=== PATIENT | male | born 1960 | race Caucasian/White ===

== ENCOUNTER → 2020-11-01 08:35 | Outpatient (BNVA) | payer SELFPAY | PROVIDERS: PCP Internal Medicine; Visit Provider Physician Assistant | DX: Z02.79 Encounter for issue of other medical certificate (principal) ==

== ENCOUNTER 2021-12-27 07:53 | Outpatient (REF) | payer BC, SELFPAY ==
[2021-12-27 08:14] LABS: MANUAL DIFF FLAG NO
[2021-12-27 08:34] LABS: Basophils Percent Auto 0.2 % (0-2); Eosinophils Absolute Auto 0.1 X10*3/uL (0.0-0.4); Eosinophils Percent Auto 1.7 % (0-4); Hematocrit 44.8 % (42.0-52.0); Hemoglobin 14.9 g/dl (14.0-18.0); Imm Gran Abs Auto 0.02 X10*3/uL (0.00-0.03); Imm Gran Pct Auto 0.4 % (0.0-0.4); Lymphocytes Absolute Auto 1.2 X10*3/uL (1.2-4.9); Lymphocytes Percent Auto 22.3 % (20-40); Mean Corpuscular HGB Conc 33.3 g/dl (31.0-36.0); Mean Corpuscular Hemoglobin 29.2 pg (27.0-33.0); Mean Corpuscular Volume 87.7 fL (80.0-98.0); Mean Platelet Volume 9.8 fL (9.4-12.4); Monocytes Absolute Auto 0.5 X10*3/uL (0.1-1.2); Monocytes Percent Auto 9.3 % (2-11); Neutrophils Absolute Auto 3.6 x10*3/uL (2.0-8.3); Neutrophils Percent Auto 66.1 % (45-73); Platelet Count 200 X10*3/uL (160-400); Red Blood Count 5.11 X10*6/uL (4.60-5.80); Red Cell Distribution Width 13.1 % (11.0-16.0); White Blood Count 5.4 X10*3/uL (4.8-10.8)
[2021-12-27 08:41] LABS: Estimated Average Glucose 123 mg/dL; Hemoglobin A1c % 5.9 %
[2021-12-27 09:06] LABS: Alanine Aminotransferase 23 U/L (0-40); Albumin Level 4.3 g/dL (3.5-5.0); Alkaline Phosphatase 74 U/L (39-117); Anion Gap 12 (12-20); Aspartate Amino Transferase 21 U/L (5-37); Bilirubin Total 0.9 mg/dL (0.0-1.0); Blood Urea Nitrogen 13 mg/dL (9-16); Calcium 9.5 mg/dL (8.4-10.2); Carbon Dioxide 25 mmol/L (22-29); Chloride 105 mmol/L (96-108); Cholesterol 190 mg/dL; Estimated Glomerular Filt Rate > 60; Glucose Random 102 mg/dL (60-115); HDL Cholesterol 39 mg/dL; LDL Cholesterol Calculated 138 mg/dl; Potassium 4.9 mmol/L (3.3-5.1); Sodium 137 mmol/L (135-145); Total Protein 7.3 g/dL (6.5-8.0); Triglycerides 67 mg/dL
[2021-12-27 09:19] LABS: Thyroid Stimulating Hormone 1.32 uIU/mL (0.32-4.0)
== END 2021-12-27 07:54 | disposition home or self-care (01) ==
LOC: HO.LAB 07:53
PROVIDERS: PCP Internal Medicine; Visit Provider Internal Medicine
DX: Z00.01 Encounter for general adult medical examination with abnormal findings (principal); Z13.31 Encounter for screening for depression; I10 Essential (primary) hypertension
CPT/HCPCS: 36415; 80053; 80061; 83036; 84443; 85025

== ENCOUNTER 2022-07-22 15:11 | Outpatient (REF) | payer BC, SELFPAY | END 2022-07-22 15:12 | disposition home or self-care (01) | LOC: HO.LAB 15:11 | PROVIDERS: Visit Provider Internal Medicine | DX: Z13.89 Encounter for screening for other disorder (principal) ==

== ENCOUNTER 2023-01-25 08:04 | Outpatient (REF) | payer BC, SELFPAY ==
[2023-01-25 08:33] LABS: MANUAL DIFF FLAG NO
[2023-01-25 09:14] LABS: Basophils Percent Auto 0.2 % (0-2); Eosinophils Absolute Auto 0.1 X10*3/uL (0.0-0.4); Eosinophils Percent Auto 1.9 % (0-4); Hematocrit 44.5 % (42.0-52.0); Hemoglobin 14.7 g/dl (14.0-18.0); Imm Gran Abs Auto 0.01 X10*3/uL (0.00-0.03); Imm Gran Pct Auto 0.2 % (0.0-0.4); Lymphocytes Absolute Auto 1.2 X10*3/uL (1.2-4.9); Lymphocytes Percent Auto 21.2 % (20-40); Mean Corpuscular Hemoglobin 29.1 pg (27.0-33.0); Mean Corpuscular Volume 88.1 fL (80.0-98.0); Mean Platelet Volume 10.4 fL (9.4-12.4); Monocytes Absolute Auto 0.4 X10*3/uL (0.1-1.2); Monocytes Percent Auto 7.8 % (2-11); Neutrophils Absolute Auto 3.9 x10*3/uL (2.0-8.3); Neutrophils Percent Auto 68.7 % (45-73); Platelet Count 204 X10*3/uL (160-400); Red Blood Count 5.05 X10*6/uL (4.60-5.80); Red Cell Distribution Width 13.2 % (11.0-16.0); White Blood Count 5.7 X10*3/uL (4.8-10.8)
[2023-01-25 09:46] LABS: Alanine Aminotransferase 29 U/L (0-40); Albumin Level 4.2 g/dL (3.5-5.0); Alkaline Phosphatase 83 U/L (39-117); Anion Gap 12 (12-20); Aspartate Amino Transferase 19 U/L (5-37); Bilirubin Total 0.7 mg/dL (0.0-1.0); Blood Urea Nitrogen 11 mg/dL (9-16); Calcium 9.2 mg/dL (8.4-10.2); Carbon Dioxide 25 mmol/L (22-29); Chloride 111 mmol/L (96-108); Cholesterol 172 mg/dL; Estimated Glomerular Filt Rate > 60; Glucose Random 112 mg/dL (60-115); HDL Cholesterol 33 mg/dL; LDL Cholesterol Calculated 119 mg/dl; Potassium 4.5 mmol/L (3.3-5.1); Sodium 143 mmol/L (135-145); Total Protein 6.8 g/dL (6.5-8.0); Triglycerides 102 mg/dL
== END 2023-01-25 08:05 | disposition home or self-care (01) ==
LOC: HO.LAB 08:04
PROVIDERS: PCP Internal Medicine; Visit Provider Internal Medicine
DX: Z00.01 Encounter for general adult medical examination with abnormal findings (principal); Z12.5 Encounter for screening for malignant neoplasm of prostate; I10 Essential (primary) hypertension; R10.9 Unspecified abdominal pain; Z91.148 Patient's other noncompliance with medication regimen for other reason
CPT/HCPCS: 36415; 80053; 80061; 84153; 85025

== ENCOUNTER 2023-08-29 16:10 | Inpatient (IN) | payer BC, SELFPAY ==
[2023-08-29 16:53] VITALS: BP 182/112; PULSE 87; RESP 18; TEMP 36.1; O2SAT 96; BMI 39.9
--- NOTE | 2023-08-29 18:32 | ED_ITS ---
HPI - Male Genitourinary General Chief complaint: Urogenital-Male Stated complaint: Flank pain Time Seen by Provider: 08/29/23 19:29 History of Present Illness HPI Narrative: 62 y/o M patient; PMH HTN, nephrolithiasis; presents from home reporting left- sided flank pain for the last 3 days. Associated with painful urination and decrease in urination today. Also associated with nausea without vomiting. Otherwise denies: fever or chills, SOB, cough/congestion, chest pain, vomiting, diarrhea, hematuria. He has previously been followed by Urology with history of stent and lithotripsy. He has required admission previously for kidney stones. Related Data Allergies Allergy/AdvReac Type Severity Reaction Status Date / Time No Known Allergies Allergy Verified 08/29/23 16:53 [No Known Allergies*] Review of Systems 2 Review of Systems: Yes all other systems are reviewed and are negative [facility] Past Medical History Attestation statement: The following information was validated with the patient. Source: old records reviewed Onset Date is defined in the Problem List Problems that require an onset date and time if occurred within 24 hrs of arrival to the ED Aortic Dissection and Rupture; Neurologic impairment; Cardiopulmonary Arrest; Endotracheal Intubation; Insertion or Replacement of Mechanical Circulatory Assist Device Social History Social History Smoked in Last 30 Days: No Use of substances other than those prescribed or required for medical reasons: No Advance Directives: No Advance Directives Information Provided: No Physical Exam 2 Vital Signs: Vital Signs: Last Vital Signs Temp 98.4 F 08/29/23 19:56 Pulse 79 08/29/23 19:56 Resp 18 08/29/23 19:56 BP 186/115 H 08/29/23 19:56 Pulse Ox 96 08/29/23 19:56 O2 Del Method Room Air 08/29/23 19:56 BMI result Body Mass Index 39.9 Patient is afebrile, mildly hypertensive. Const: General: cooperative HEENT: Head: Yes atraumatic Eyes: General: appearance normal, both eyes and all related structures P upils: Equal, round and reactive pupils present EOM: EOMs intact bilaterally Neck: Neck: Yes normal visual inspection, Yes full ROM and Yes supple Chest: Chest palpation & inspection: normal inspection of the chest and normal palpation of entire chest wall Resp: Effort & Inspection: normal respiratory effort and no respiratory distress Auscultation: clear to auscultation bilaterally Cardio: Rate: regular rate Rhythm: regular rhythm Peripheral pulses: P eripheral pulses 2+ throughout GI: Other: Suprapubic abdominal tenderness Inspection: No Abdominal wall edema and No distended Palpation (GI): S oft to palpation, not firm, no guarding and not rigid Back/Spine/Pelvis: Other: No CVA tenderness Mild lower left-sided paralumbar discomfort to palpation, no central bony tenderness or step off Neuro: Cranial nerves: Yes Equal, round and reactive pupils present Course Course Course Narrative: This is an RME: Additional HPI, ROS, PE not included below will be deferred to primary provider. 62-year-old male presents with left-sided kidney pain, nausea X 3 days. Passed out from pain this am. hx of stones. very uncomfortable. Plan- labs, ua, ekg, ct 0735- I reviewed the images and patient has a large stone in the bladder, as well as hydronephrosis. Still pending results by Radiology. Asked charge to bring patient back. Reevaluation(s) Reevaluation #1: Patient is afebrile and hemodynamically stable. Reviewed triage work up. Leukocytosis noted. UA with evidence of possible mild infection with 1+ bacteria, 11-20 WBC, and trace leukocyte esterase. Provided total 2L IVF. Ordered for blood cultures and Ceftriaxone 2g IV due to extensive stranding noted on CT and evidence of infection in urine. Plan: Admit to hospitalist Condition: Stable Medications Administered Generic Name Dose Route Start Last Admin Trade Name Freq PRN Reason Stop Dose Admin Sodium Chloride 1,000 mls @ 999 mls/hr 08/29/23 20:00 08/29/23 20:31 Ns IV 08/29/23 21:00 999 mls/hr .Q1H1M JAZZMINE Administration Discontinued Medications Generic Name Dose Route Start Last Admin Trade Name Freq PRN Reason Stop Dose Admin Hydromorphone HCl 0.5 mg 08/29/23 20:00 08/29/23 20:21 Hydromorphone Hcl 0.5 Mg/0.5 Ml Syringe IVPUSH 08/29/23 20:01 0.5 mg ONCE ONE Administration Protocol Sodium Chloride 1,000 mls @ 999 mls/hr 08/29/23 18:45 08/29/23 20:09 Ns IV 08/29/23 19:45 999 mls/hr .Q1H1M JAZZMINE Administration Ceftriaxone Sodium 2 gm/ 50 mls @ 100 mls/hr 08/29/23 20:01 08/29/23 20:27 Sodium Chloride IV 08/29/23 20:30 100 mls/hr ONCE ONE Administration Ketorolac Tromethamine 30 mg 08/29/23 18:32 08/29/23 20:17 Ketorolac Tromethamine 15 Mg/Ml Vial IVPUSH 08/29/23 18:33 Not Given ONCE ONE Medical Decision Making Lab Data 08/29/23 17:12 08/29/23 17:12 Labs: Lab Results 08/29/23 08/29/23 Range/Units 17:12 18:34 WBC 13.0 H (4.8-10.8) X10*3/uL RBC 5.56 (4.60-5.80) X10*6/uL Hgb 16.4 (14.0-18.0) g/dl Hct 47.4 (42.0-52.0) % MCV 85.3 (80.0-98.0) fL MCH 29.5 (27.0-33.0) pg MCHC 34.6 (31.0-36.0) g/dl RDW 13.2 (11.0-16.0) % Plt Count 219 (160-400) X10*3/uL MPV 9.7 (9.4-12.4) fL Immature Gran % (Auto) 0.5 H (0.0-0.4) % Neut % (Auto) 84.4 H (45-73) % Lymph % (Auto) 7.2 L (20-40) % [place] % (Auto) 7.4 (2-11) % Eos % (Auto) 0.3 (0-4) % Baso % (Auto) 0.2 (0-2) % Lymph # (Auto) 0.9 L (1.2-4.9) X10*3/uL [place] # (Auto) 1.0 (0.1-1.2) X10*3/uL Eos # (Auto) 0.0 (0.0-0.4) X10*3/uL Baso # (Auto) 0.0 (0.0-0.2) X10*3/uL Abs Immat Gran (auto) 0.06 H (0.00-0.03) X10*3/uL Absolute Neuts (auto) 11.0 H (2.0-8.3) x10*3/uL Absolute Nucleated RBC 0.000 (0.0-0.012) X10*3/uL Nucleated RBC % (auto) 0.0 (0.0-0.2) /100WBC Sodium 139 (135-145) mmol/L Potassium 4.2 (3.3-5.1) mmol/L Chloride 105 (96-108) mmol/L Carbon Dioxide 23 (22-29) mmol/L Anion Gap 15 (12-20) BUN 15 (9-16) mg/dL Creatinine 1.37 (0.5-1.4) mg/dL Estim Creat Clear Calc 68.8 Estimated GFR 53 Random Glucose 108 (60-115) mg/dL Calcium 9.7 (8.4-10.2) mg/dL Total Bilirubin 0.5 (0.0-1.0) mg/dL AST 24 (5-37) U/L ALT 29 (0-40) U/L Alkaline Phosphatase 70 (39-117) U/L Total Protein 8.0 (6.5-8.0) g/dL Albumin 4.5 (3.5-5.0) g/dL Urine Color Yellow Urine Appearance Turbid Urine pH 8.0 (5.0-9.0) Ur Specific [place] 1.020 (1.005-1.025) Urine Protein Trace (Neg-Trace) mg/dL Urine Glucose (UA) Negative (Negative) mg/dL Urine Ketones Negative (Negative) mg/dL Urine Blood Negative (Negative) Urine Nitrite Negative (Negative) Ur Leukocyte Esterase Trace H (Negative) Urine RBC 0-2 (0-2) /HPF Urine WBC 11-20 H (0-5) /HPF Ur Squamous Epith Cells 0-2 (0-2) /HPF Urine Bacteria 1+ (None Seen) Hyaline Casts 0-2 (0-2) /LPF Radiology Impression Discussion of test interpretation with radiology: I have reviewed the radiologist's reading. Radiologist Impression: EXAMINATION: CT ABDOMEN AND PELVIS WITHOUT CONTRAST CLINICAL INFORMATION: Left flank pain. COMPARISON: CT abdomen pelvis dated 01/21/2019. TECHNIQUE: Multidetector volumetric imaging was performed from the superior aspect of the liver through the pubic symphysis. Sagittal and coronal reformatted images were obtained on the technologist's workstation. This CT examination was performed using dose optimization techniques as appropriate, variously including the following: *Automated exposure control *Adjustment of mA and/or kV according to patient size (this includes techniques or standardized protocols for targeted exams where dose is matched to indication/reason for exam; i.e. extremities or head) *Use of iterative reconstruction technique DLP: 1043 mGy-cm FINDINGS: LUNG BASES: There is a partially visualized 4.8 mm left lower lobe pulmonary nodule. The lung bases are otherwise clear. LIVER, GALLBLADDER, AND BILIARY TREE: The liver is steatotic. No focal hepatic lesion is seen. The gallbladder is unremarkable with no evidence of radiopaque gallstones, gallbladder wall thickening, or obvious pericholecystic inflammatory changes. PANCREAS: Unremarkable. SPLEEN: Unremarkable. ADRENAL GLANDS: Unremarkable. KIDNEYS AND URETERS: Right: The right kidney is normal in size and attenuation. There is a punctate calculus within the interpolar region. There is no right hydronephrosis. There is no right perinephric stranding. There is a peripherally calcified cyst within the upper pole measuring 4.7 x 4.2 cm, unchanged from prior study. There is a 2.9 x 2.6 cm cyst within the lower pole which previously measured 1.9 x 1.5 cm. The right ureter is normal in caliber. No right ureteric stone. Left: The left kidney is mildly enlarged and demonstrates overall decreased attenuation compared with the right side. There is hydronephrosis. There is significant perinephric stranding. The left ureter is markedly dilated throughout its course particularly immediately before it enters the bladder. There is significant periureteric stranding. There is a 1.3 x 0.9 cm calculus at the left ureterovesicular junction. BLADDER: There is a left-sided 1.3 x 0.9 cm calculus at the left ureterovesicular junction as stated above. The anterior wall of the bladder remains trabeculated. GASTROINTESTINAL TRACT: The small bowel and colon are normal in caliber. There is colonic diverticulosis without evidence of acute diverticulitis. The appendix is normal in appearance. ABDOMINAL WALL: No significant hernia is appreciated. LYMPH NODES: No abdominal or pelvic lymphadenopathy. VASCULAR: No abdominal aortic aneurysm. PELVIC VISCERA: Unremarkable. 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 There are pars defects at L5 bilaterally. CT/CT abdomen pelvis wo IV con IMPRESSION: - The left kidney is mildly enlarged and demonstrates overall decreased attenuation compared with the right side. There is hydronephrosis. There is significant perinephric stranding. The left ureter is markedly dilated throughout its course particularly immediately before it enters the bladder. There is significant periureteric stranding. There is a 1.3 x 0.9 cm calculus at the left ureterovesicular junction. Findings were discussed with SIMEON Dunham at 7:30 PM on 08/29/2023. Fleischner guidelines were followed. Discharge Plan Discharge Clinical Impression: Urinary tract infection, Kidney stone Patient Disposition: Admitted As Inpatient
[2023-08-29 19:56] VITALS: BP 186/115; PULSE 79; RESP 18; TEMP 36.9; O2SAT 96
--- NOTE | 2023-08-29 20:50 | PHA.MEDREC ---
Pharmacy Consult ? Medication Reconciliation Pharmacy has completed the medication reconciliation. Patient reported no medications at home. Cindy Hardy, CherylD
--- NOTE | 2023-08-29 21:02 | PC.NURSE ---
pt requesting a work note if he receives any narcotics during admission d/t drug testing at work
--- NOTE | 2023-08-29 21:07 | PM.IMHP ---
History of Present Illness Date of Service: 08/29/23 Chief Complaint: Left flank pain This is a 62-year-old male with pertinent history of diet-controlled hypertension, history of recurrent kidney stones who presents to the emergency department for evaluation of left flank pain. Patient states his symptoms started 3 days prior to presentation. It has been progressive over the last 3 days. It is associated with chills, dysuria and urinary hesitancy. Endorses nausea but no vomiting. No fever, chest discomfort, palpitations, shortness of breath, changes in bowel habits. Does have a history of stent placement and lithotripsy for kidney stones. Unclear etiology of kidney stones. In the emergency department, imaging with calculus at the left ureteropelvic junction with hydronephrosis. WBC elevated and UA concerning for acute UTI Review of Systems Constitutional: Constitutional: Reports chills Cardiovascular: Cardiovascular: Reports no additional cardiovascular complaints Respiratory: Respiratory: Reports no additional respiratory complaints Gastrointestinal: Gastrointestinal: Reports abdominal pain and Reports nausea Genitourinary: Genitourinary: Reports dysuria and Reports urinary hesitancy [facility] Medical History Essential hypertension Kidney stone Pertinent family history: No family history of early CAD Social History Smoked in Last 30 Days: No Use of substances other than those prescribed or required for medical reasons: No Advance Directives: No Advance Directives Information Provided: No Meds Allergies Allergy/AdvReac Type Severity Reaction Status Date / Time No Known Allergies Allergy Verified 08/29/23 16:53 [No Known Allergies*] Home Medications Medication Instructions Recorded Confirmed Last Taken Type No Known Home Meds 08/29/23 08/29/23 Unknown History Physical Exam Vital Signs and Narrative: Vital Signs: Last Vital Signs Temp 98.4 F 08/29/23 19:56 Pulse 79 08/29/23 19:56 Resp 18 08/29/23 19:56 BP 186/115 H 08/29/23 19:56 Pulse Ox 96 08/29/23 19:56 O2 Del Method Room Air 08/29/23 19:56 BMI result Body Mass Index 39.9 Middle-aged male lying in bed in no distress Neck supple, no JVD Regular rate and rhythm, S1-S2 heard Regular breath sounds bilaterally, no wheezing or crackles appreciated Abdomen with left-sided CVA tenderness, no guarding, no rigidity, no rebound tenderness Patient is awake, alert and oriented to self, place, time and person ; no focal motor deficit Psych: Normal mood No pedal edema Results Labs 08/29/23 17:12 08/29/23 17:12 Labs: Laboratory Results - last 24 hr 08/29/23 08/29/23 17:12 18:34 MCV 85.3 MCH 29.5 MCHC 34.6 RDW 13.2 Plt Count 219 MPV 9.7 Immature Gran % (Auto) 0.5 H Neut % (Auto) 84.4 H Lymph % (Auto) 7.2 L [place] % (Auto) 7.4 Eos % (Auto) 0.3 Baso % (Auto) 0.2 Lymph # (Auto) 0.9 L [place] # (Auto) 1.0 Eos # (Auto) 0.0 Baso # (Auto) 0.0 Abs Immat Gran (auto) 0.06 H Absolute Neuts (auto) 11.0 H Absolute Nucleated RBC 0.000 Nucleated RBC % (auto) 0.0 Anion Gap 15 Estim Creat Clear Calc 68.8 Estimated GFR 53 Random Glucose 108 Calcium 9.7 Total Bilirubin 0.5 AST 24 ALT 29 Alkaline Phosphatase 70 Total Protein 8.0 Albumin 4.5 Urine Color Yellow Urine Appearance Turbid Urine pH 8.0 Ur Specific [place] 1.020 Urine Protein Trace Urine Glucose (UA) Negative Urine Ketones Negative Urine Blood Negative Urine Nitrite Negative Ur Leukocyte Esterase Trace H Urine RBC 0-2 Urine WBC 11-20 H Ur Squamous Epith Cells 0-2 Urine Bacteria 1+ Hyaline Casts 0-2 Imaging Radiologist's Impressions: Impressions Abdomen/Pelvis CT 08/29/23 18:54 IMPRESSION: - The left kidney is mildly enlarged and demonstrates overall decreased attenuation compared with the right side. There is hydronephrosis. There is significant perinephric stranding. The left ureter is markedly dilated throughout its course particularly immediately before it enters the bladder. There is significant periureteric stranding. There is a 1.3 x 0.9 cm calculus at the left ureterovesicular junction. Findings were discussed with SIMEON Dunham at 7:30 PM on 08/29/2023. Fleischner guidelines were followed. Assessment and Plan (1) Kidney stone: Status: Acute (2) Urinary tract infection: Status: Acute Plan This is a 62-year-old male with pertinent history of diet-controlled hypertension, history of recurrent kidney stones who presents to the emergency department for evaluation of left flank pain. #. Obstructive left sided nephrolithiasis with hydronephrosis complicated by acute UTI and clinical pyelonephritis: Will admit patient and initiate empiric IV antibiotics. Consulted Urology, appreciate assistance. No sepsis. Urine culture pending. #. Essential hypertension: Elevated at the time of presentation likely due to pain. Previously on amlodipine and ARB. Continue to monitor. DVT prophylaxis: Mechanical Full code Admit as inpatient and will require two night minimum hospital stay for IV antibiotics (as above), which is not possible in a lesser acute setting. Specialist consult pending Quality Stroke Does the patient have a stroke diagnosis?: No VTE Prior VTE?: No VTE Risk Level:: Medical - moderate - high VTE Device Contraindication: N/A - Device Ordered VTE Drug Contraindication: Treatment Not Indicated
--- NOTE | 2023-08-29 21:22 | MHC.EDTECH ---
Patient had good veins, but delayed/slowed draw. unable to fill both set of Blood Cultures, but able to collect both sets
--- NOTE | 2023-08-29 22:43 | PC.NURSE ---
pt vomiting at this time d/t pain. medicated per MAR
[2023-08-29 23:03] VITALS: BP 160/99; PULSE 70; RESP 19; TEMP 37.1; O2SAT 95
[2023-08-29 23:45] VITALS: BP 159/95; PULSE 73; RESP 16; TEMP 36.8; O2SAT 98
--- NOTE | 2023-08-30 03:45 | PC.NURSE ---
Pt sleeping at the bedside in no apparent distress. Breaths are even regular and unlabored with equal chest rises. Monitoring is ongoing.
[2023-08-30 06:16] VITALS: BP 132/89; PULSE 85; RESP 16; TEMP 36.9; O2SAT 96
--- NOTE | 2023-08-30 06:33 | PC.NURSE ---
No urine output noted since previous shift. Pt reports feeling uncomfortable voiding on the bed as purewick is in place. Pt encouraged to void with no success. Bladder scan shows 495cc of urine. Pt placed on bed joseph and able to put out a large amount of urine.
--- NOTE | 2023-08-30 07:51 | PC.NURSE ---
this RN resumed care of pt at this time. pt ambulated to the bathroom w/ steady gait - stopping at nurses station speaking w/ this RN stating that he wants to go home and not be admitted d/t thinking that he passed his kidney stone. pt denies any pain/urinary sx post urination. admitting provider aware at this time. pt now resting comfortably in bed in no apparent distress. no sob/wob noted. respirations even and unlabored. call zazueta placed within reach.
--- NOTE | 2023-08-30 08:32 | PM.DS ---
DS: Providers Provider Date of Service: 08/30/23 Date of admission: 08/29/23 21:06 Primary care physician: Petra Hernandez MD Consults: 08/29/23 21:07 Consult to Urology Routine Consulting Provider: Mik Almonte Reason for consultation: obstructive calculus DS: Diagnosis Discharge Diagnosis (1) Kidney stone: Status: Acute (2) Urinary tract infection: Status: Acute DS: Summary Hospital Course Hospital Course: This is a 62-year-old male with pertinent history of diet-controlled hypertension, history of recurrent kidney stones who presents to the emergency department for evaluation of left flank pain. Patient states his symptoms started 3 days prior to presentation. It has been progressive over the last 3 days. It is associated with chills, dysuria and urinary hesitancy. Endorses nausea but no vomiting. No fever, chest discomfort, palpitations, shortness of breath, changes in bowel habits. Does have a history of stent placement and lithotripsy for kidney stones. Unclear etiology of kidney stones. In the emergency department, imaging with calculus at the left ureteropelvic junction with hydronephrosis. WBC elevated and UA concerning for acute UTI. 62-year-old man admitted for presumed obstructive left-sided nephrolithiasis with hydronephrosis secondary to renal calculi with UTI. He was treated with IV Rocephin, urology consult in, no sepsis noted. In the morning patient reported that his pain had completely disappeared and he felt like he passed the stone. No fever noted a mild leukocytosis likely secondary to the UTI. Patient was urinating without any difficulty, requested to be discharged. Patient will go home with 7 days of oral antibiotics for UTI/pyelonephritis. Patient report back to the ER if symptoms return, worsen or persist. Hypertension. Continue home medications Time Attestation Discharge coordination time: Greater than 30 minutes Quality: Safe Use of Opioids Does Pt have an Active Cancer Diagnosis on the Problem List?: No Quality: Stroke Does the patient have a stroke diagnosis?: No Physical Exam Vital Signs: Vital Signs: Last Vital Signs Temp 98.4 F 08/30/23 06:16 Pulse 85 08/30/23 06:16 Resp 16 08/30/23 06:16 BP 132/89 08/30/23 06:16 Pulse Ox 96 08/30/23 06:16 O2 Del Method Room Air 08/29/23 23:45 BMI result Body Mass Index 39.9 Appearing in no acute distress head is normocephalic atraumatic eyes pupils are PERRLA sclera is anicteric mouth throat mucous membranes are intact and moist neck is supple no lymphadenopathy, no JVD noted lung sounds are clear to auscultation heart regular rate rhythm, clear S1, S2 positive bowel sounds, abdomen is soft, nontender neuro patient is alert x3, no focal deficits DS: Data Data Completed and Pending Labs on day of discharge: Laboratory Results - last 24 hr 08/29/23 08/29/23 08/29/23 17:12 18:34 21:10 WBC 13.0 H RBC 5.56 Hgb 16.4 Hct 47.4 MCV 85.3 MCH 29.5 MCHC 34.6 RDW 13.2 Plt Count 219 MPV 9.7 Immature Gran % (Auto) 0.5 H Neut % (Auto) 84.4 H Lymph % (Auto) 7.2 L [place] % (Auto) 7.4 Eos % (Auto) 0.3 Baso % (Auto) 0.2 Lymph # (Auto) 0.9 L [place] # (Auto) 1.0 Eos # (Auto) 0.0 Baso # (Auto) 0.0 Abs Immat Gran (auto) 0.06 H Absolute Neuts (auto) 11.0 H Absolute Nucleated RBC 0.000 Nucleated RBC % (auto) 0.0 Sodium 139 Potassium 4.2 Chloride 105 Carbon Dioxide 23 Anion Gap 15 BUN 15 Creatinine 1.37 Estim Creat Clear Calc 68.8 Estimated GFR 53 Random Glucose 108 Lactic Acid 1.5 Calcium 9.7 Total Bilirubin 0.5 AST 24 ALT 29 Alkaline Phosphatase 70 Total Protein 8.0 Albumin 4.5 Urine Color Yellow Urine Appearance Turbid Urine pH 8.0 Ur Specific [place] 1.020 Urine Protein Trace Urine Glucose (UA) Negative Urine Ketones Negative Urine Blood Negative Urine Nitrite Negative Ur Leukocyte Esterase Trace H Urine RBC 0-2 Urine WBC 11-20 H Ur Squamous Epith Cells 0-2 Urine Bacteria 1+ Hyaline Casts 0-2 Discharge Plan Discharge Anticipated Discharge Date/Time: 08/30/23 08:30 Patient Disposition: Home, Self-Care Discharge Diagnosis: Passed kidney stone UTI Referrals: Petra Hernandez MD [Primary Care Provider] - 1 Week Discharge Medications: New cefuroxime axetil 500 mg tablet 500 mg PO BID Qty: 14 0RF Discharge Orders: Discharge Order (Routine); Ordered 08/30/23 Ordered By: Nannette Norman Diet: Advance to usual diet Activity on Discharge: As tolerated Stand Alone Forms: Patient Portal Discharge page Care Plan Goals: Return to the ED if pain returns or worsens. Health Concerns: Follow up with primary care provider as needed Take all medications as prescribed Plan of Treatment: Passed kidney stone UTI Assessment: See discharge summary Discharge Date/Time: 08/30/23 15:32
--- NOTE | 2023-08-30 08:35 | PC.NURSE ---
pt spoke w/ admitting provider Nannette Norman. diet order placed for pt to kitchen as pt is no longer NPO. pt aware of plan of care in regards to discharge and medications to take post discharge at this time.
== END 2023-08-30 15:32 | disposition home or self-care (01) | DRG 463 ==
LOC: HO.ED 20:37 → HO.EDOVER 21:11
PROVIDERS: Admitting Provider Student in an Organized Health Care Education/Training Program; Emergency Provider Emergency Medicine; PCP Internal Medicine; Visit Provider Nurse Practitioner Acute Care
DX: N13.6 Pyonephrosis (principal); I10 Essential (primary) hypertension; Z87.442 Personal history of urinary calculi
CPT/HCPCS: 36415; 74176; 80053; 81001; 81003; 83605; 85025; 87040; 87086; 93005; 99285; J0696; J1170; J1885; J2405

== ENCOUNTER → 2023-08-29 18:34 | Outpatient (BNV) | payer BC, SELFPAY | PROVIDERS: Admitting Provider Student in an Organized Health Care Education/Training Program; Emergency Provider Emergency Medicine; PCP Internal Medicine; Visit Provider Internal Medicine Cardiovascular Disease | DX: R55 Syncope and collapse (principal) | CPT/HCPCS: 93010 ==

== ENCOUNTER → 2023-08-29 21:06 | Outpatient (BNV) | payer BC, SELFPAY | PROVIDERS: Admitting Provider Student in an Organized Health Care Education/Training Program; Emergency Provider Emergency Medicine; PCP Internal Medicine; Visit Provider Student in an Organized Health Care Education/Training Program | DX: N20.0 Calculus of kidney (principal); N39.0 Urinary tract infection, site not specified | CPT/HCPCS: 99222; 99239 ==

== ENCOUNTER 2023-10-08 08:43 | Outpatient (AMB) | payer BC, SELFPAY ==
--- NOTE | 2023-10-08 09:17 | A.OFFVIS_ITS ---
Intake Intake Visit Reasons: ER Follow up/ Stone Intake Note: New Patient presents today for [facility] ER follow up for kidney stones ER visit date: 08/30/23 Urology Medications: none Blood Thinner:none Patient denies any blood in the urine or pain during urination. Patient feels very well. Patient also stated he takes a medication for HTN, however he does not remember the name. Commercial Appraiser Required: No Accompanied by: Self / Same As Patient Allergies No Known Allergies [No Known Allergies*] Allergy (Verified 10/08/23 09:37) Medication List - Last Reconciled 10/08/23 by SERA Cheng No Known Home Meds HPI HPI Comments History of Present Illness Details Bridger is a very pleasant 63-year-old male patient of . He has a past medical history of hypertension and nephrolithiasis. He presents to the office today as a new patient for nephrolithiasis. In discussion with the patient today he reports having seeked emergency room care approximately 1 month ago for left-sided flank pain with lower urinary tract symptoms. In review of patient's chart it appears CT of the abdomen was ordered and performed. These results reviewed with the patient today. Right kidney wit h no hydronephrosis, 4.7 and 2.6 cm cyst within the upper and lower poles of the kidney. Left kidney is mildly enlarged and demonstrates overall decreased attenuation compared to the right. There is hydronephrosis. There is significant perinephric stranding. The left ureter is markedly dilated. There is a 1.3 x 0.9 calculus at the left ureterovesical junction. When asked he reports pain has since subsided and he has since passed his kidney stone however did not collect for further analysis. When asked he reports a longstanding history of nephrolithiasis however never requiring surgical intervention. He reports previously following up with [facility]. Discussed at length potential causes of nephrolithiasis. Patient discusses drinking approximately 14 packs of soda per week. He reports being told by previous urologist soda is not well causes his nephrolithiasis is the amount of cheese that he eats. Again, discussed at length potential causes of nephrolithiasis. He otherwise denies any bothersome urinary issues or concerns. He denies urinary urgency, urinary frequency, incontinence, nocturia, hematuria, dysuria, foul smelling urine, changes to urinary stream, flank pain, fever, and or chills. He is happy with his current voiding parameters. In office urinalysis results reviewed with the patient today. He otherwise offers no other issues or concerns at this time. [facility] Medical History Kidney stone Essential hypertension Social History Patient Tobacco Use Status: Never used Tobacco Review of Systems Const Reports no additional complaints Eyes Reports no additional complaints ENT Reports no additional complaints Card Reports as per HPI Resp Reports no additional complaints GI Reports no additional complaints Reports as per HPI Musc Reports no additional complaints Neuro Reports no additional complaints Psych Reports no additional complaints Endo Reports no additional complaints Hakan/Lymph Reports no additional complaints Aller/Immun Reports no additional complaints Physical Exam Const General: cooperative, healthy appearing, comfortable, no acute distress, well developed, alert and awake Nutritional Appearance: overweight Orientation/consciousness: patient oriented x3 Limitations: no limitations HEENT Head: Yes normal to inspection, Yes normocephalic and Yes atraumatic Ears: hearing grossly normal bilaterally Eyes General: appearance normal, both eyes and all related structures Neck Neck: Yes normal visual inspection and Yes trachea midline Chest Chest palpation & inspection: normal inspection of the chest Resp Effort & Inspection: normal respiratory effort and able to speak in complete sentences Cardio Rate: regular rate GI Inspection: Yes normal to inspection General: Yes no CVA tenderness Back/Spine/Pelvis Back: no CVA tenderness Skin General skin exam: no rashes or lesions noted Neuro General: patient oriented x3 Extrem General: Yes normal to inspection Psych Appearance: grossly normal and well kempt Mental Status: mental status grossly normal Speech and movement: Normal speech and movement present and Clear speech present Affect: normal affect Attitude: cooperative Thought process: Normal thought process present Thought content: Normal thought content present Insight: Fair insight present (Psych) Judgement: Fair judgement present (Psych) Results AMB Urinalysis, Automated UA Leukoctes 0 Ani/uL Last Edit by Ann Grijalva CMA on 10/08/23 09 :31 UA Nitrite Negative Last Edit by Ann Grijalva CMA on 10/08/23 09: 31 UA Urobilinogen 0.2 mg/dL Last Edit by Ann Grijalva CMA on 4 09:31 UA Protein 15 mg/dL Last Edit by Ann Grijalvaludivina Grijalva, [facility] on 10/08/23 09:3 1 UA pH 6.5 Last Edit by Ann Grijalva, [facility] on 10/08/23 09:31 UA Blood 0 Zeke/uL Last Edit by Ann Grijalva, [facility] on 10/08/23 09:31 UA Specific [place] 1.020 Last Edit by Ann Grijalva, [facility] on 09:31 UA Ketone Negative Last Edit by Ann Grijalva, [facility] on 10/08/23 09:3 1 UA Bilirubin 0 mg/dL Last Edit by Ann Grijalva [facility] on 10/08/23 09: 31 UA Glucose 0 mg/dL Last Edit by Ann Grijalva [facility] on 10/08/23 09:31 Results Reviewed Results Reviewed: Date of Service: 08/29/23 EXAMINATION: CT ABDOMEN AND PELVIS WITHOUT CONTRAST FINDINGS: LUNG BASES: There is a partially visualized 4.8 mm left lower lobe pulmonary nodule. The lung bases are otherwise clear. LIVER, GALLBLADDER, AND BILIARY TREE: The liver is steatotic. No focal hepatic lesion is seen. The gallbladder is unremarkable with no evidence of radiopaque gallstones, gallbladder wall thickening, or obvious pericholecystic inflammatory changes. PANCREAS: Unremarkable. SPLEEN: Unremarkable. ADRENAL GLANDS: Unremarkable. KIDNEYS AND URETERS: Right: The right kidney is normal in size and attenuation. There is a punctate calculus within the interpolar region. There is no right hydronephrosis. There is no right perinephric stranding. There is a peripherally calcified cyst within the upper pole measuring 4.7 x 4.2 cm, unchanged from prior study. There is a 2.9 x 2.6 cm cyst within the lower pole which previously measured 1.9 x 1.5 cm. The right ureter is normal in caliber. No right ureteric stone. Left: The left kidney is mildly enlarged and demonstrates overall decreased attenuation compared with the right side. There is hydronephrosis. There is significant perinephric stranding. The left ureter is markedly dilated throughout its course particularly immediately before it enters the bladder. There is significant periureteric stranding. There is a 1.3 x 0.9 cm calculus at the left ureterovesicular junction. BLADDER: There is a left-sided 1.3 x 0.9 cm calculus at the left ureterovesicular junction as stated above. The anterior wall of the bladder remains trabeculated. GASTROINTESTINAL TRACT: The small bowel and colon are normal in caliber. There is colonic diverticulosis without evidence of acute diverticulitis. The appendix is normal in appearance. ABDOMINAL WALL: No significant hernia is appreciated. LYMPH NODES: No abdominal or pelvic lymphadenopathy. VASCULAR: No abdominal aortic aneurysm. PELVIC VISCERA: Unremarkable. 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 There are pars defects at L5 bilaterally. IMPRESSION: - The left kidney is mildly enlarged and demonstrates overall decreased attenuation compared with the right side. There is hydronephrosis. There is significant perinephric stranding. The left ureter is markedly dilated throughout its course particularly immediately before it enters the bladder. There is significant periureteric stranding. There is a 1.3 x 0.9 cm calculus at the left ureterovesicular junction. Assessment & Plan Assessment & Plan (1) Kidney stone: Code(s): N20.0 - Calculus of kidney (2) UPJ (ureteropelvic junction) obstruction: Code(s): N13.5 - Crossing vessel and stricture of ureter without hydronephrosis (3) Hydronephrosis: Code(s): N13.30 - Unspecified hydronephrosis Plan In office urinalysis results reviewed with the patient today; as noted above. Recent CT results reviewed with the patient today; as noted above. Patient currently denies any bothersome urinary issues He reports be happy with current voiding parameters. Will obtain CT KUB to further assess for resolution of hydronephrosis. Discussed, educated, and stressed the importance of drinking plenty of water daily. Discussed at length potential causes of nephrolithiasis. Discussed near future metabolic workup with 24 hour urine collection and labs Follow-up in 1-2 weeks with imaging to be completed prior; or sooner with any issues, concerns, and or questions. Orders: Orders AMB Urinalysis Automated Today R33.9 - Retention of urine, unspecified CT kidney stone Today N13.5 - Crossing vessel and stricture of ureter without hydronephrosis, N20.0 - Calculus of kidney Patient Instructions: The patient had an opportunity to ask questions regarding the treatment plan. All questions were answered. Physical exam, labs, and imaging were discussed and reviewed in detail. As well as risks, benefits, and discussion of treatment choices. No major barriers to understanding were identified. The patient expressed understanding and agreement with the above treatment plan. The patient was made aware they should contact our office by phone for worsening of their current condition, the appearance of new symptoms, or with any questions or concerns. Compliance is encouraged with any medications and follow up testing that is ordered. It is a privilege to be allowed the opportunity to participate in? your urological care.? Again, if you have any questions or melany rns If you have any questions or concerns please do not hesitate to contact me. The office is [phone]. This note is constructed using voice recognition software. While every effort has been made to ensure accuracy senior net engineer errors may have been included. Yours sincerely, SERA Cheng Coding Level of Care Code New Pt Level 3 (98605) Diagnoses Kidney stone N20.0 UPJ (ureteropelvic junction) obstruction N13.5 Hydronephrosis N13.30
== END 2023-10-08 09:37 | disposition home or self-care (01) ==
PROVIDERS: PCP Internal Medicine; Visit Provider Nurse Practitioner Family
DX: N20.0 Calculus of kidney (principal); N13.5 Crossing vessel and stricture of ureter without hydronephrosis; N13.30 Unspecified hydronephrosis; R33.9 Retention of urine, unspecified
CPT/HCPCS: 99203; 99213

== ENCOUNTER → 2023-10-08 08:43 | Outpatient (BNVA) | payer BC, SELFPAY | PROVIDERS: PCP Internal Medicine; Visit Provider Nurse Practitioner Family | DX: N20.0 Calculus of kidney (principal); N13.1 Hydronephrosis with ureteral stricture, not elsewhere classified; R33.9 Retention of urine, unspecified | CPT/HCPCS: 81003 ==

== ENCOUNTER 2023-11-24 12:39 | Outpatient (REF) | payer BC, SELFPAY ==
--- NOTE | ~2023-11-24 | CT_ITS ---
EXAMINATION: CT KIDNEY STONE CLINICAL INFORMATION: Crossing vessel and stricture of ureter without hydroureteronephrosis. COMPARISON: CT abdomen and pelvis without IV contrast 08/29/2023 TECHNIQUE: 5 mm thin axial and reformatted 2 mm thin sagittal and coronal images of abdomen pelvis were obtained without contrast. DLP 775. This CT examination was performed using dose optimization technique as appropriate, variously including the following: Automated exposure control Adjustment of MA and/or KV according to patient size(this includes techniques or standardized protocols for targeted exams where dose is matched to indication/reason for exam; extremities or head. Use of iterative reconstruction techniques. FINDINGS: Lung bases: Unremarkable. Previously described left lung nodule is not seen on this exam. Heart size is normal. Liver, ducts and gallbladder: The liver is normal size, diffusely attenuated with normal contour. No focal lesion seen. There are no radiopaque gallstones. Spleen: Unremarkable. Pancreas: Unremarkable. Adrenal glands: Unremarkable. Kidneys and ureter: Both kidneys are normal size, shape and position. There is hypodense cyst with peripheral wall calcification measuring 4.7 x 4.3 cm,, stable and measures 4.7 cm on previous exam. There is a simple 2.8 x 2.9 cm cyst midpole right kidney minimally, stable No radiopaque renal calculi or hydronephrosis seen. No perinephric stranding. Previously seen hydronephrosis and left UVJ stone have resolved. The stone has migrated into the bladder. Lymphovascular structures: Abdominal aorta is of normal caliber. No abnormal size retroperitoneal, mesenteric lymph nodes seen. GI tract: There is scattered stool, diverticuli and gas throughout the colon without distention. The small bowel loops are normal caliber. Appendix is normal caliber. There is 2.7 cm long fat stranding along the left midabdomen on coronal image 52/6 adjacent abdominal wall likely fat necrosis. It is stable to previous exam. Abdominal wall: There is no evidence of hernia. Pelvis: The urinary bladder is mildly distended with a radiopaque 1 cm dependent stone. No bladder wall thickening seen. The prostate gland is normal size. No evidence of hernia. There are small cyst shotty bilateral inguinal lymph nodes. Osseous structures: There is grade 2 anterolisthesis L5 over S1 with endplate sclerosis and degenerative changes at L5-S1 disc level. There is calcification of T11-T12 and T9-T10 disc levels likely secondary degeneration. No aggressive lytic process seen. CT/CT kidney stone IMPRESSION: Colonic diverticulosis without diverticulitis. Complex cyst lower pole and a simple cyst midpole right kidney, stable. No radiopaque renal calculi or hydroureteronephrosis seen. Diffuse hepatic steatosis without focal lesion there is some sparing of left hepatic lobe. Urinary bladder radiopaque calculi without wall thickening. The stone has migrated from left UVJ into the bladder with resolution of left hydroureteronephrosis.
== END 2023-11-24 12:40 | disposition home or self-care (01) ==
LOC: HO.CT 12:39
PROVIDERS: PCP Internal Medicine; Visit Provider Nurse Practitioner Family
DX: N13.5 Crossing vessel and stricture of ureter without hydronephrosis (principal); N20.0 Calculus of kidney
CPT/HCPCS: 74176

== ENCOUNTER 2023-12-03 08:39 | Outpatient (AMB) | payer BC, SELFPAY ==
--- NOTE | 2023-12-03 08:42 | MHC.OFFVIS ---
Intake Intake Visit Reasons: follow up/CT KUB(set) Intake Note: Patient presents today for follow up for kidney stones and CT KUB results Urology Medications: none Blood Thinner:none Die Cast Engineer Required: No Accompanied by: Self / Same As Patient Allergies No Known Allergies [No Known Allergies*] Allergy (Verified 12/03/23 10:06) Medication List - Last Reconciled 12/03/23 by IMAN Cheng-PATIENCE telmisartan 80 mg PO DAILY HPI HPI Comments History of Present Illness Details Bridger is a very pleasant 63-year-old male patient of . He has a past medical history of hypertension and nephrolithiasis. He presents to the office today for follow-up. Of note, patient was seen approximately 2 months ago as a new patient for for an obstructing 1.3 x 0.9 calculus at the left ureterovesical junction at which time a CT KUB was ordered for further assessment evaluation. These results were reviewed with the patient today. There is a hypodense cyst with wall calcifications measuring 4.7 which is stable compared to previous exam. There is a 2.9 cyst in the mid pole of the right kidney. No radiopaque calculi or hydronephrosis seen bilaterally. Previous seen hydronephrosis and left UVJ stone have resolved. The stone has migrated into the bladder. The urinary bladder is mildly distended with a radiopaque 1 cm dependence stone. The prostate gland is normal in size. In discussion with the patient today he reports his left-sided flank pain he had been experiencing has since resolved. Discussed further workup with in office cystoscopy for further assessment of bladder stone. When asked he reports a longstanding history of nephrolithiasis however never requiring surgical intervention. He reports previously following up with [facility]. Discussed at length potential causes of nephrolithiasis. Patient discusses drinking approximately 14 packs of soda per week however has been trying to limit his consumption. He otherwise denies any bothersome urinary issues or concerns. He denies urinary urgency, urinary frequency, incontinence, nocturia, hematuria, dysuria, foul smelling urine, changes to urinary stream, flank pain, fever, and or chills. He is happy with his current voiding parameters. In office urinalysis results reviewed with the patient today. He otherwise offers no other issues or concerns at this time. [facility] Medical History Kidney stone Essential hypertension Social History Patient Tobacco Use Status: Never used Tobacco Review of Systems Const Reports no additional complaints Eyes Reports no additional complaints ENT Reports no additional complaints Card Reports as per HPI Resp Reports no additional complaints GI Reports no additional complaints Reports as per HPI Musc Reports no additional complaints Neuro Reports no additional complaints Psych Reports no additional complaints Endo Reports no additional complaints Hakan/Lymph Reports no additional complaints Aller/Immun Reports no additional complaints Physical Exam Const General: cooperative, healthy appearing, comfortable, no acute distress, well developed, alert and awake Nutritional Appearance: overweight Orientation/consciousness: patient oriented x3 Limitations: no limitations HEENT Head: Yes normal to inspection, Yes normocephalic and Yes atraumatic Ears: hearing grossly normal bilaterally Eyes General: appearance normal, both eyes and all related structures Neck Neck: Yes normal visual inspection and Yes trachea midline Chest Chest palpation & inspection: normal inspection of the chest Resp Effort & Inspection: normal respiratory effort and able to speak in complete sentences Cardio Rate: regular rate GI Inspection: Yes normal to inspection General: Yes no CVA tenderness Back/Spine/Pelvis Back: no CVA tenderness Skin General skin exam: no rashes or lesions noted Neuro General: patient oriented x3 Extrem General: Yes normal to inspection Psych Appearance: grossly normal and well kempt Mental Status: mental status grossly normal Speech and movement: Normal speech and movement present and Clear speech present Affect: normal affect Attitude: cooperative Thought process: Normal thought process present Thought content: Normal thought content present Insight: Fair insight present (Psych) Judgement: Fair judgement present (Psych) Results AMB Urinalysis, Automated UA Leukoctes 0 Ani/uL Last Edit by Neri Caraballo on 12/03/23 09:00 UA Nitrite Negative Last Edit by Neri Carablalo on 12/03/23 09:00 UA Urobilinogen 0.2 mg/dL Last Edit by Neri Caraballo on 12/03/23 09:00 UA Protein 15 mg/dL Last Edit by Neri Caraballo on 12/03/23 09:00 UA pH 6.0 Last Edit by Neri Caraballo on 12/03/23 09:00 UA Blood 0 Zeke/uL Last Edit by Germainazizamartita Herreraariel on 12/03/23 09:00 UA Specific [place] 1.030 Last Edit by Neri Sharonariel on 12/03/23 09:00 UA Ketone Negative Last Edit by Neri Sharonariel on 12/03/23 09:00 UA Bilirubin 0 mg/dL Last Edit by Neri Sharonariel on 12/03/23 09:00 UA Glucose 0 mg/dL Last Edit by Neri Sharonariel on 12/03/23 09:00 Results Reviewed Results Reviewed: Laboratory Last Values Urine pH (Auto) 6.0 12/03/23 08:48 Specific [place] (Auto) 1.030 12/03/23 08:48 Urine Protein (Auto) 15 mg/dL 12/03/23 08:48 Glucose (UA)(Auto) 0 mg/dL 12/03/23 08:48 Urine Ketones (Auto) Negative 12/03/23 08:48 Urine Blood (Auto) 0 Zeke/uL 12/03/23 08:48 Urine Nitrite (Auto) Negative 12/03/23 08:48 Urine Bilirubin (Auto) 0 mg/dL 12/03/23 08:48 Urine Urobilinogen (Auto) 0.2 mg/dL 12/03/23 08:48 Leukocyte Esterase (Auto) 0 Ani/uL 12/03/23 08:48 Date of Service: 11/24/23 EXAMINATION: CT KIDNEY STONE FINDINGS: Lung bases: Unremarkable. Previously described left lung nodule is not seen on this exam. Heart size is normal. Liver, ducts and gallbladder: The liver is normal size, diffusely attenuated with normal contour. No focal lesion seen. There are no radiopaque gallstones. Spleen: Unremarkable. Pancreas: Unremarkable. Adrenal glands: Unremarkable. Kidneys and ureter: Both kidneys are normal size, shape and position. There is hypodense cyst with peripheral wall calcification measuring 4.7 x 4.3 cm,, stable and measures 4.7 cm on previous exam. There is a simple 2.8 x 2.9 cm cyst midpole right kidney minimally, stable No radiopaque renal calculi or hydronephrosis seen. No perinephric stranding. Previously seen hydronephrosis and left UVJ stone have resolved. The stone has migrated into the bladder. Lymphovascular structures: Abdominal aorta is of normal caliber. No abnormal size retroperitoneal, mesenteric lymph nodes seen. GI tract: There is scattered stool, diverticuli and gas throughout the colon without distention. The small bowel loops are normal caliber. Appendix is normal caliber. There is 2.7 cm long fat stranding along the left midabdomen on coronal image 52/6 adjacent abdominal wall likely fat necrosis. It is stable to previous exam. Abdominal wall: There is no evidence of hernia. Pelvis: The urinary bladder is mildly distended with a radiopaque 1 cm dependent stone. No bladder wall thickening seen. The prostate gland is normal size. No evidence of hernia. There are small cyst shotty bilateral inguinal lymph nodes. Osseous structures: There is grade 2 anterolisthesis L5 over S1 with endplate sclerosis and degenerative changes at L5-S1 disc level. There is calcification of T11-T12 and T9-T10 disc levels likely secondary degeneration. No aggressive lytic process seen. IMPRESSION: Colonic diverticulosis without diverticulitis. Complex cyst lower pole and a simple cyst midpole right kidney, stable. No radiopaque renal calculi or hydroureteronephrosis seen. Diffuse hepatic steatosis without focal lesion there is some sparing of left hepatic lobe. Urinary bladder radiopaque calculi without wall thickening. The stone has migrated from left UVJ into the bladder with resolution of left hydroureteronephrosis. Assessment & Plan Assessment & Plan (1) Bladder stone: Code(s): N21.0 - Calculus in bladder (2) Kidney stone: Code(s): N20.0 - Calculus of kidney (3) UPJ (ureteropelvic junction) obstruction: Code(s): N13.5 - Crossing vessel and stricture of ureter without hydronephrosis (4) Hydronephrosis: Code(s): N13.30 - Unspecified hydronephrosis Plan In office urinalysis results reviewed with the patient today; as noted above. Recent CT results reviewed with the patient today; as noted above. Patient currently denies any bothersome urinary issues He reports be happy with current voiding parameters. Discussed, educated, and stressed the importance of drinking plenty of water daily. Discussed at length potntial causes of nephrolithiasis. Will obtain PSA for further assessment evaluation Discussed near future metabolic workup with 24 hour urine collection and labs Follow-up in office cystoscopy for further assessment evaluation of bladder stone noted on recent CT KUB; or sooner with any issues, concerns, and or questions. Orders: Orders AMB Urinalysis Automated Today Z13.9 - Encounter for screening, unspecified Prostate Specific Antigen Today N40.0 - Benign prostatic hyperplasia without lower urinary tract symptoms Patient Instructions: The patient had an opportunity to ask questions regarding the treatment plan. All questions were answered. Physical exam, labs, and imaging were discussed and reviewed in detail. As well as risks, benefits, and discussion of treatment choices. No major barriers to understanding were identified. The patient expressed understanding and agreement with the above treatment plan. The patient was made aware they should contact our office by phone for worsening of their current condition, the appearance of new symptoms, or with any questions or concerns. Compliance is encouraged with any medications and follow up testing that is ordered. It is a privilege to be allowed the opportunity to participate in? your urological care.? Again, if you have any questions or concerns If you have any questions or concerns please do not hesitate to contact me. The office is [phone]. This note is constructed using voice recognition software. While every effort has been made to ensure accuracy 8th grade mathematics teacher errors may have been included. Yours sincerely, SERA Cheng Coding Level of Care Code Est Pt Level 3 (77640) Diagnoses Bladder stone N21.0 Kidney stone N20.0 UPJ (ureteropelvic junction) obstruction N13.5 Hydronephrosis N13.30
== END 2023-12-03 09:25 | disposition home or self-care (01) ==
PROVIDERS: PCP Internal Medicine; Visit Provider Nurse Practitioner Family
DX: N21.0 Calculus in bladder (principal); N20.0 Calculus of kidney; N13.5 Crossing vessel and stricture of ureter without hydronephrosis; N13.30 Unspecified hydronephrosis; Z13.9 Encounter for screening, unspecified
CPT/HCPCS: 99213

== ENCOUNTER → 2023-12-03 08:39 | Outpatient (BNVA) | payer BC, SELFPAY | PROVIDERS: PCP Internal Medicine; Visit Provider Nurse Practitioner Family | DX: N21.0 Calculus in bladder (principal) | CPT/HCPCS: 81003 ==

== ENCOUNTER → 2024-10-05 10:10 | Outpatient (BNVA) | payer SELFPAY | PROVIDERS: PCP Internal Medicine; Visit Provider Registered Nurse | DX: Z02.79 Encounter for issue of other medical certificate (principal) ==

== ENCOUNTER 2025-03-22 06:41 | Emergency (ER) | payer OTHER, SELFPAY ==
--- NOTE | ~2025-03-22 | CT_ITS ---
EXAMINATION: CT ABDOMEN PELVIS WITHOUT IV CONTRAST HISTORY: back pain, hx kidney stones, +UTI r/o infected stone COMPARISON: Comparison is made with the prior examination dated 4 11/24/2023. TECHNIQUE: CT scan of the abdomen and pelvis was performed without contrast using standard departmental protocol. Coronal and sagittal reformatted images were generated and reviewed. Oral contrast material was not administered per department protocol. This CT exam was performed with one or more of the following dose reduction techniques: automated exposure control, adjustment of the mA and/or kV according to patient size, use of iterative reconstruction technique. DLP: 782 mGy-cm FINDINGS: LOWER CHEST: The visualized lung bases are clear. There is no pleural effusion. CARDIOVASCULATURE: The heart is normal in size. There is no pericardial effusion. LIVER: The liver is normal in size and contour, but demonstrates diffusely decreased attenuation, consistent with steatosis. The liver has an unremarkable unenhanced appearance. GALLBLADDER / BILE DUCTS: The gallbladder is unremarkable. There is no intra or extrahepatic biliary ductal dilatation. SPLEEN: The spleen is normal in size and has an unremarkable unenhanced appearance. PANCREAS: The pancreas has an unremarkable unenhanced appearance. ADRENAL GLANDS: The right adrenal gland is unremarkable. There is mild nodularity of the lateral limb of the left adrenal gland. KIDNEYS/RETROPERITONEUM: No renal calculi are identified. Again seen is a 4.6 cm rim calcified mass at the upper pole of the right kidney. There is a 2.9 cm cyst at the lower pole of the right kidney. There is moderate bilateral hydroureteronephrosis to the level of the bladder. No obstructing ureteral calculus is identified. LYMPH NODES: No retroperitoneal lymphadenopathy is identified in the abdomen or pelvis. VASCULATURE: The abdominal aorta is normal in caliber. MESENTERY/PERITONEUM: No free fluid. No masses. There is no free intraperitoneal gas. STOMACH: The stomach is collapsed, limiting evaluation. SMALL BOWEL: The small bowel is normal in caliber. COLON: The colon is unremarkable. APPENDIX: Normal. URINARY BLADDER/PELVIC ORGANS: Again seen is a 10 mm calculus in the dependent portion of the urinary bladder. The bladder demonstrates moderate wall thickening which may be secondary to cystitis or may be on the basis of chronic outflow obstruction. The prostate is normal in size. BONES / SOFT TISSUES: Again seen is bilateral spondylolysis of L5 with grade I-II spondylolisthesis of L5 on S1. CT/CT abdomen pelvis wo IV con IMPRESSION: 1. Moderate bilateral hydroureteronephrosis to the level of the bladder. No obstructing ureteral calculus is identified. 2. Urinary bladder wall thickening which may be secondary to cystitis or chronic bladder outflow obstruction. Urologic consultation is recommended. 3. 10 mm bladder calculus. 4. Hepatic steatosis. Sigmoid diverticulosis without evidence of diverticulitis. Electronically signed by: Darshan Yeh MD 03/22/2025 09:39 AM EDT
[2025-03-22 06:56] VITALS: BP 200/120; PULSE 74; RESP 18; TEMP 36.7; O2SAT 98; BMI 41.8
[2025-03-22 07:15] LABS: MANUAL DIFF FLAG NO
[2025-03-22 07:18] LABS: Appearance Urine Cloudy; Glucose Urine UA Negative (Negative); PH 7.5 (5.0-9.0); Specific Gravity - Urine 1.015 (1.005-1.025); UMIC TRIGGER UACC YES
[2025-03-22 07:19] LABS: Hematocrit 39.6 % (42.0-52.0); Hemoglobin 14.3 g/dl (14.0-18.0); Imm Gran Abs Auto 0.03 X10*3/uL (0.00-0.03); Imm Gran Pct Auto 0.3 % (0.0-0.4); Lymphocytes Absolute Auto 1.3 X10*3/uL (1.2-4.9); Mean Corpuscular HGB Conc 36.1 g/dl (31.0-36.0); Mean Corpuscular Hemoglobin 30.4 pg (27.0-33.0); Mean Corpuscular Volume 84.3 fL (80.0-98.0); NRBC Abs Auto 0.000 X10*3/uL (0.0-0.012); NRBC Pct Auto 0.0 /100WBC (0.0-0.2); Platelet Count 233 X10*3/uL (160-400); Red Blood Count 4.70 X10*6/uL (4.60-5.80); White Blood Count 9.0 X10*3/uL (4.8-10.8)
[2025-03-22 07:23] LABS: UACC Culture Trigger YES
[2025-03-22 07:28] LABS: Anion Gap 14 (12-20); Blood Urea Nitrogen 15 mg/dL (9-16); Calcium 9.1 mg/dL (8.4-10.2); Carbon Dioxide 21 mmol/L (22-29); Chloride 112 mmol/L (96-108); Creatinine Clr Calc Pharmacy 69.4; Estimated Glomerular Filt Rate 51; Potassium 4.0 mmol/L (3.3-5.1); Sodium 143 mmol/L (135-145)
[2025-03-22 08:14] VITALS: BP 165/109; PULSE 69; RESP 18; TEMP 36.9; O2SAT 95
--- OUTSIDE RECORDS SUMMARY | 2025-03-22 08:32 | XMS_ITS | Patient Health Record ---
Author Organization [facility] Address [address] [place] [address] Care Team Providers Care Associate Director Data & Analytics Name Role Phone NONE, NONE Primary Care Provider Darshan Carvajal Unavailable [phone] Reason For Referral No Information Medications Medication SIG (Take, Route, Frequency, Duration) Notes Start Date End Date Status MoviPrep 100 GM as directed Orally A S DIRECTED for 1 days 02/15/2014 Active Colyte w Flavor Packs 240 GM as directed Orally as directed for 1 day(s) 05/19/2014 Active Problems Problem Type SNOMED Code ICD Code Onset Dates Problem Status W/U Status Risk Notes Problem Pre-surgery evaluation (745458254) Other specified pre-operative examination (V72.83) Active confirmed Problem Colon cancer screening (825466759) Colon cancer screening (V76.51) Active confirmed Plan Of Treatment Future Test Test Name Order Date COLONOSCOPY 02/15/2014 Insurance Providers Payer Name Payer Address Payer Phone Subscriber Number Group Number Insured Name Patient Relationship to Insured Coverage Start Date Coverage End Date [facility] [address] [place] [phone] [id number] INES INGRAM Self - patient is the insured Medical (General) History Medical History History ICD Code Denies [place],DM,CVA,Lung disease,renal dise ase Neg. UGI in 2012
--- NOTE | 2025-03-22 08:49 | ED_ITS ---
HPI - Male Genitourinary General Chief complaint: Urogenital-Male Stated complaint: Uro-Gen Male Time Seen by Provider: 03/22/25 08:48 Source: patient Mode of arrival: ambulatory Limitations: no limitations History of Present Illness ED Provider: Rizwan Suarez PA-C HPI Narrative: 64 y/o male with history of hydronephrosis with known kidney stones, known bladder stone, history of UTI, HTN who presents to the ER for evaluation of dysuria, voiding small amounts, straining to urinate, back pain and bladder discomfort for the last 2 weeks. Patient has a known large bladder stone and was supposed to follow-up with urology but has not. He states he feels like he has kidney stones back pain and pain with urination. Denies any fevers or chills. No abdominal pain. States there has been burning with urination but no blood in his urine. He has had stones in his urethra in the past for which he used a curette to remove. No recent manipulation with a curette. He denies any fever or chills. MD Complaint: dysuria and other (Difficulty urinating) Onset (ago): week(s) (2) Duration: progressively worsening Quality: burning Relieving factors: none Exacerbating factors: urination Associated symptoms: Reports urinary retention and dysuria Related Data Home Medications ?Medication ?Instructions ?Recorded ?Confirmed telmisartan 80 mg tablet 80 mg PO DAILY 12/03/23 Previous Rx's ?Medication ?Instructions ?Recorded cefuroxime axetil 500 mg tablet 500 mg PO Q12H 10 days #20 tabs 03/22/25 Allergies Allergy/AdvReac Type Severity Reaction Status Date / Time No Known Allergies (No Known Allergy Verified 03/22/25 06:59 Allergies*) Review of Systems 2 Review of Systems: Yes all other systems are reviewed and are negative [facility] Past Medical History Medical History Kidney stone Essential hypertension Social History Social History Patient Tobacco Use Status: Never used Tobacco Advance Directives: No Advance Directives Information Provided: Yes Do you have a plan to hurt others: No Plan Physical Exam 2 Exam: Exam: Appearance: Alert. Oriented X3. No acute distress. Head: normocephalic, atraumatic. Eyes: Pupils equal, round and reactive to light. ENT: Pharynx normal. No tonsillar swelling or exudate. Neck: Normal inspection. Neck supple. CVS: Normal heart rate and rhythm. Pulses normal. Respiratory: No respiratory distress. Breath sounds normal. Abdomen: Soft and nontender. +BS x4. No CVA tenderness. Skin: Skin warm and dry. Normal skin color. Normal skin turgor. No rashes. Extremities: No lower extremity edema. No joint swelling. Neuro/psych: Oriented X 3. Grossly normal, nonfocal. Normal speech and cognition. Vital Signs: Vital Signs: Last Vital Signs Temp 98.4 F 03/22/25 08:14 Pulse 69 03/22/25 08:14 Resp 18 03/22/25 08:14 BP 165/109 H 03/22/25 08:14 Pulse Ox 95 03/22/25 08:14 O2 Del Method Room Air 03/22/25 08:14 BMI result Body Mass Index 41.8 Medications Administered Discontinued Medications Generic Name Dose Route Start Last Admin Trade Name Freq PRN Reason Stop Dose Admin Ceftriaxone Sodium 1 gm 03/22/25 09:06 03/22/25 09:37 Ceftriaxone Sodium 1 Gm Vial IVPUSH 03/22/25 09:07 1 gm ONCE ONE Administration Lactated Ringer's 1,000 mls @ 999 mls/hr 03/22/25 09:15 03/22/25 09:37 Lr IV 03/22/25 10:15 999 mls/hr .Q1H1M JAZZMINE Administration Ketorolac Tromethamine 15 mg 03/22/25 09:04 03/22/25 09:37 Ketorolac Tromethamine 15 Mg/Ml Vial IVPUSH 03/22/25 09:05 15 mg ONCE ONE Administration Medical Decision Making Medical Decision Making MDM Narrative: 64-year-old male with a known diagnosis of kidney stones, bladder stones, hydronephrosis, history of UTI and hypertension who presents to the ER for evaluation of dysuria, difficulty urinating for the last 2 weeks. No fever or chills, no abdominal pain or vomiting. No signs of systemic illness. He does have back pain and thinks he may have kidney stones again. He tried to see his PCP and urologist but was told to come to the ER for further evaluation. Patient is hemodynamically stable and afebrile on arrival. Labs showed no leukocytosis. He he has CKD which is stable and mild. Urinalysis is positive for infection along with some blood. CT scan of his abdomen and pelvis was done to rule out obstructive uropathy and infected kidney stone which may need intervention. This showed known bilateral hydro, large bladder stone with bladder wall thickening. He is urinating but about 300 cc on bladder scan postvoid. Case discussed with Dr. Almonte, Ndiaye catheter not recommended at this time. Recommend treatment of UTI with antibiotics and follow-up in the office. Dose of IV Rocephin and Toradol given here with improvement in his pain. At this time comfortable discharge home with oral antibiotics, close follow-up with Urology. We discussed need for follow-up and return precautions to the ER. He is stable for discharge and all questions were answered. Differential Diagnosis Differential Diagnoses: The differential diagnosis associated with the presentation includes Infected kidney stone, obstructive uropathy, UTI, pyelonephritis, infected bladder stone Admission/Observation Consideration of admission/observation: Escalation of care including admission/observation considered Consult Healthcare Provider Management of the patient was discussed with: Manager Hydraulic Dr. Alomnte from Urology Lab Data MDM Lab Attestation statement: I reviewed the patient's lab results. no leukocytosis, stable baseline CKD 03/22/25 07:05 03/22/25 07:05 Labs: Lab Results 03/22/25 Range/Units 07:05 WBC 9.0 (4.8-10.8) X10*3/uL RBC 4.70 (4.60-5.80) X10*6/uL Hgb 14.3 (14.0-18.0) g/dl Hct 39.6 L (42.0-52.0) % MCV 84.3 (80.0-98.0) fL MCH 30.4 (27.0-33.0) pg MCHC 36.1 H (31.0-36.0) g/dl RDW 12.7 (11.0-16.0) % Plt Count 233 (160-400) X10*3/uL MPV 9.8 (9.4-12.4) fL Immature Gran % (Auto) 0.3 (0.0-0.4) % Neut % (Auto) 76.2 H (45-73) % Lymph % (Auto) 14.6 L (20-40) % Bond % (Auto) 7.2 (2-11) % Eos % (Auto) 1.6 (0-4) % Baso % (Auto) 0.1 (0-2) % Lymph # (Auto) 1.3 (1.2-4.9) X10*3/uL Bond # (Auto) 0.7 (0.1-1.2) X10*3/uL Eos # (Auto) 0.1 (0.0-0.4) X10*3/uL Baso # (Auto) 0.0 (0.0-0.2) X10*3/uL Abs Immat Gran (auto) 0.03 (0.00-0.03) X10*3/uL Absolute Neuts (auto) 6.8 (2.0-8.3) x10*3/uL Absolute Nucleated RBC 0.000 (0.0-0.012) X10*3/uL Nucleated RBC % (auto) 0.0 (0.0-0.2) /100WBC Sodium 143 (135-145) mmol/L Potassium 4.0 (3.3-5.1) mmol/L Chloride 112 H (96-108) mmol/L Carbon Dioxide 21 L (22-29) mmol/L Anion Gap 14 (12-20) BUN 15 (9-16) mg/dL Creatinine 1.40 (0.5-1.4) mg/dL Estim Creat Clear Calc 69.4 Estimated GFR 51 Random Glucose 123 H (60-115) mg/dL Calcium 9.1 D (8.4-10.2) mg/dL Urine Color Yellow Urine Appearance Cloudy Urine pH 7.5 (5.0-9.0) Ur Specific [place] 1.015 (1.005-1.025) Urine Protein 100 (2+) H (Neg-Trace) mg/dL Urine Glucose (UA) Negative (Negative) mg/dL Urine Ketones Negative (Negative) mg/dL Urine Blood Small (1+) H (Negative) Urine Nitrite Negative (Negative) Ur Leukocyte Esterase Large (3+) H (Negative) Urine RBC 3-5 H (0-2) /HPF Urine WBC >50 H (0-5) /HPF Ur Squamous Epith Cells 0-2 (0-2) /HPF Urine Bacteria None Seen (None Seen) Hyaline Casts 0-2 (0-2) /LPF Independent Interpretation I performed an independent interpretation of an: CT Scan Interpretation: Bilateral hydronephrosis, no ureteral stone noted, large bladder stone with thickened bladder wall Radiology Impression Discussion of test interpretation with radiology: I have reviewed the radiologist's reading. Radiologist Impression: CT/CT abdomen pelvis wo IV con IMPRESSION: 1. Moderate bilateral hydroureteronephrosis to the level of the bladder. No obstructing ureteral calculus is identified. 2. Urinary bladder wall thickening which may be secondary to cystitis or chronic bladder outflow obstruction. Urologic consultation is recommended. 3. 10 mm bladder calculus. 4. Hepatic steatosis. Sigmoid diverticulosis without evidence of diverticulitis. External Record Review External record reviewed: Outpatient record, Prior outpatient labs and Prior outpatient radiology Prescription Management I considered prescription management with: Pain Medication and Antibiotic Chronic Conditions Patient?s care impacted by: Hypertension and Other (Kidney stone) Critical Care Time Critical Care Time Critical Care Time: Yes Total Critical Care Time: 33 Attestation: I have personally provided critical care time exclusive of time spent on separately billable procedures. Time includes review of lab data, radiology results, discussion with consultants, and monitoring for potential decompensation. Intervention performed as documented. Discharge Plan Discharge Clinical Impression: Urinary tract infection Qualifiers: Urinary tract infection type: acute cystitis Hematuria presence: with hematuria Qualified Code(s): N30.01 - Acute cystitis with hematuria Patient Disposition: Home, Self-Care Instructions: Urinary Tract Infection in Men (DC) Additional Instructions: You have a UTI that is causing your symptoms You were given IV antibiotic today in the ER Take the prescribed oral antibiotic as directed and complete the entire course. Do not miss any doses. Start this tomorrow morning. Recommend following up with Urology If you develop new or worsening symptoms call 911 or come back to the ER for further evaluation. Prescriptions: New cefuroxime axetil 500 mg tablet 500 mg PO Q12H 10 Days Qty: 20 0RF No Action telmisartan 80 mg tablet 80 mg PO DAILY Referrals: [facility] [Provider Group, Urology] Print Language: Tuvaluan
[2025-03-22] MEDS: Lactated Ringers 1,000 ML 999 ML IV (09:37)
--- NOTE | 2025-03-22 09:49 | PC.NURSE ---
20g IV access established in left AC. Medications administered as ordered. Pt requested something to eat/drink, denied request at this time due to pending CT scan results. Care ongoing by this RN.
[2025-03-22 10:47] VITALS: BP 165/109; PULSE 69; RESP 18; TEMP 36.9; O2SAT 95
== END 2025-03-22 10:47 | disposition home or self-care (01) ==
PROVIDERS: Emergency Provider Emergency Medicine; PCP Internal Medicine
DX: N30.01 Acute cystitis with hematuria (principal); R33.9 Retention of urine, unspecified; I10 Essential (primary) hypertension
CPT/HCPCS: 36415; 74176; 80048; 81001; 85025; 87086; 96361; 96374; 96375; 99284; J0696; J1885; J7120

== ENCOUNTER → 2025-03-22 09:03 | Outpatient (BNV) | payer OTHER, SELFPAY | PROVIDERS: Emergency Provider Emergency Medicine; PCP Internal Medicine; Visit Provider Radiology Diagnostic Radiology | DX: N28.1 Cyst of kidney, acquired (principal) | CPT/HCPCS: 74176 ==

== ENCOUNTER 2025-03-31 06:27 | Emergency (ER) | payer OTHER, SELFPAY ==
--- NOTE | ~2025-03-31 | CT_ITS ---
EXAMINATION: CT ABDOMEN PELVIS WITHOUT IV CONTRAST HISTORY: flank pain COMPARISON: Comparison is made with the prior examination dated 03/22/2025. TECHNIQUE: CT scan of the abdomen and pelvis was performed without contrast using standard departmental protocol. Coronal and sagittal reformatted images were generated and reviewed. Oral contrast material was not administered per department protocol. This CT exam was performed with one or more of the following dose reduction techniques: automated exposure control, adjustment of the mA and/or kV according to patient size, use of iterative reconstruction technique. DLP: 791 mGy-cm FINDINGS: LOWER CHEST: The visualized lung bases are clear. There is no pleural effusion. CARDIOVASCULATURE: The heart is normal in size. There is no pericardial effusion. LIVER: The liver is normal in size and contour, but demonstrates diffusely decreased attenuation, consistent with steatosis. The liver has an unremarkable unenhanced appearance. GALLBLADDER / BILE DUCTS: The gallbladder is unremarkable. There is no intra or extrahepatic biliary ductal dilatation. SPLEEN: The spleen is normal in size and has an unremarkable unenhanced appearance. PANCREAS: The pancreas has an unremarkable unenhanced appearance. ADRENAL GLANDS: Unremarkable. KIDNEYS/RETROPERITONEUM: Again seen is a rim calcified structure at the upper pole of the right kidney measuring 4.7 cm. There is a 2.7 cm cyst at the lower pole. No renal calculi are identified. There is moderate bilateral hydroureteronephrosis to the level of the bladder without significant change. No ureteral calculi are identified. LYMPH NODES: No retroperitoneal lymphadenopathy is identified in the abdomen or pelvis. VASCULATURE: The abdominal aorta is normal in caliber. MESENTERY/PERITONEUM: No free fluid. No masses. There is no free intraperitoneal gas. STOMACH: The stomach is collapsed, limiting evaluation. SMALL BOWEL: The small bowel is normal in caliber. COLON: There is diverticulosis of the descending and sigmoid colon, without evidence of diverticulitis. APPENDIX: Normal. URINARY BLADDER/PELVIC ORGANS: Again seen is a 10 mm calculus in the dependent portion of the urinary bladder. Again seen is moderate bladder wall thickening which could be secondary to cystitis or chronic outflow obstruction. The prostate is normal in size. BONES / SOFT TISSUES: There is bilateral spondylolysis of L5 with grade I-II spondylolisthesis of L5 on S1. CT/CT abdomen pelvis wo IV con IMPRESSION: 1. Persistent moderate bilateral hydroureteronephrosis to the level of the bladder without evidence of an obstructing ureteral calculus. 2. 10 mm bladder calculus. Moderate bladder wall thickening which may be on the basis of chronic outflow obstruction or cystitis. Clinical and urologic consultation is suggested. Electronically signed by: Darshan Yeh MD 03/31/2025 09:38 AM EDT RP
[2025-03-31 06:39] VITALS: BP 172/100; PULSE 84; RESP 16; TEMP 36.1; O2SAT 97; BMI 40.3
[2025-03-31 06:51] LABS: MANUAL DIFF FLAG NO
[2025-03-31 06:55] LABS: Hematocrit 40.0 % (42.0-52.0); Hemoglobin 14.3 g/dl (14.0-18.0); Imm Gran Abs Auto 0.02 X10*3/uL (0.00-0.03); Imm Gran Pct Auto 0.3 % (0.0-0.4); Lymphocytes Absolute Auto 1.4 X10*3/uL (1.2-4.9); Mean Corpuscular HGB Conc 35.8 g/dl (31.0-36.0); Mean Corpuscular Hemoglobin 29.9 pg (27.0-33.0); Mean Corpuscular Volume 83.5 fL (80.0-98.0); NRBC Abs Auto 0.000 X10*3/uL (0.0-0.012); NRBC Pct Auto 0.0 /100WBC (0.0-0.2); Platelet Count 246 X10*3/uL (160-400); Red Blood Count 4.79 X10*6/uL (4.60-5.80); White Blood Count 7.7 X10*3/uL (4.8-10.8)
[2025-03-31 07:07] VITALS: BP 159/96; PULSE 62; RESP 14; TEMP 36.7; O2SAT 94
[2025-03-31 07:14] LABS: Anion Gap 10 (12-20); Blood Urea Nitrogen 14 mg/dL (9-16); Calcium 9.1 mg/dL (8.4-10.2); Carbon Dioxide 22 mmol/L (22-29); Chloride 111 mmol/L (96-108); Creatinine Clr Calc Pharmacy 69.5; Estimated Glomerular Filt Rate 52; Potassium 3.9 mmol/L (3.3-5.1); Sodium 139 mmol/L (135-145)
--- NOTE | 2025-03-31 07:19 | PC.NURSE ---
Patient presents to ED c/o low to mid back pain rated 10/10. Patient has hx of kidney stones. Was seen @ [facility] last Weds for bladder stones. Patient was prescribed ABX still currently taking medications. Patient reports urine retention bladder scanned for 227ml. Patient reports blood in urine at times Patient able to prodice urine sample, no visible blood noted specimen sent to lab. Provider in to see patient plan of care on going
[2025-03-31 07:30] LABS: Appearance Urine Turbid; Glucose Urine UA Negative (Negative); PH 5.5 (5.0-9.0); Specific Gravity - Urine 1.015 (1.005-1.025); UMIC TRIGGER UACC YES
[2025-03-31 07:35] LABS: UACC Culture Trigger YES
--- OUTSIDE RECORDS SUMMARY | 2025-03-31 07:39 | XMS_ITS | Patient Health Record ---
Author Organization [facility] Address [address] [place] [address] Care Team Providers Care Chemistry Department Chair Name Role Phone NONE, NONE Primary Care Provider Darshan Carvajal Unavailable [phone] Reason For Referral No Information Medications Medication [...] W/U Status Risk Notes Problem Pre-surgery evaluation (224594562) Other specified pre-operative examination (V72.83) Active confirmed Problem Colon cancer screening (V76.51) Active confirmed Plan Of Treatment Future Test Test Name Order Date COLONOSCOPY 02/15/2014 Insurance Providers Payer Name Payer Address Payer Phone Subscriber Number Group Number Insured Name Patient Relationship to Insured Coverage Start Date Coverage End Date [facility] [address] [place] [phone] [id number] INES INRGAM Self - patient is the insured Medical (General) History Medical History History ICD Code Denies [place],DM,CVA,Lung disease,renal dise ase Neg. UGI in 2012
--- NOTE | 2025-03-31 08:10 | ED_ITS ---
HPI - Male Genitourinary General Chief complaint: Urogenital-Male Stated complaint: kidney stones blood in urine Time Seen by Provider: 03/31/25 08:05 Source: patient Mode of arrival: ambulatory Limitations: no limitations History of Present Illness ED Provider: Yesika Hernandez PA-C HPI Narrative: Patient is a 64 year old assigned male at with a history of kidney stones, known bladder stone, and HTN presenting to the emergency department today with continued flank and bladder pain with increased urinary urgency and feeling like he cannot urinate well. Patient states that he was here on 03/22/2025 for similar things, evaluated at that time, and discharged home with PO antibiotic and pain management with a urology appointment later this month but his symptoms are worsening. Patient denies any dizziness, lightheadedness, abdominal pain, nausea, vomiting, fever, chills, blurry vision, double vision, loss of vision, chest pain, difficulty breathing, shortness of breath, back pain, night sweats, pain with urination, blood in his urine or stool, syncope or a near syncopal episode, recent trauma or falls, bowel incontinence, bladder incontinence, or any other complaints at this time. Relieving factors: none Exacerbating factors: none Related Data Home Medications ?Medication ?Instructions ?Recorded ?Confirmed telmisartan 80 mg tablet 80 mg PO DAILY 12/03/23 Previous Rx's ?Medication ?Instructions ?Recorded cefuroxime axetil 500 mg tablet 500 mg PO Q12H 10 days #20 tabs 03/22/25 acetaminophen 500 mg tablet 500 mg PO Q6H #20 tabs 03/18 (Tylenol Extra Strength) finasteride 5 mg tablet (Proscar) 5 mg PO DAILY #14 ta bs 03/31/25 phenazopyridine 100 mg tablet 100 mg PO BID #14 tabs 0 03/31/25 (Pyridium) tamsulosin 0.4 mg capsule 0.4 mg PO DAILY #7 caps 03/18 Allergies Allergy/AdvReac Type Severity Reaction Status Date / Time No Known Allergies (No Known Allergy Verified 03/31/25 06:41 Allergies*) Review of Systems 2 Constitutional: Constitutional: Reports no additional constitutional complaints, Denies chills, Denies fever(s) and Denies night sweats Eyes: Eyes: Reports no additional eye complaints, Denies blurry vision, Denies change in vision, Denies diplopia, Denies eye discharge, Denies loss of vision and Denies eye pain ENT: Denies dizziness Cardiovascular: Cardiovascular: Reports no additional cardiovascular complaints, Denies chest pain, Denies lightheadedness, Denies Loss of Consciousness and Denies dyspnea Respiratory: Respiratory: Reports no additional respiratory complaints and Denies dyspnea Gastrointestinal: Gastrointestinal: Reports no additional gastrointestinal complaints, Denies abdominal pain, Denies melena, Denies hematochezia, Denies change in bowel habits and Denies change in stool character Genitourinary: Genitourinary: Reports no additional male genitourinary complaints, Denies hematuria, Reports oliguria, Denies difficulty urinating, Denies dysuria, Reports flank pain, Reports urinary frequency, Denies urinary hesitancy, Denies urinary incontinence and Reports urinary urgency Musculoskeletal: Musculoskeletal: Reports no additional musculoskeletal complaints, Denies numbness and Denies tingling Neurologic: Denies dizziness, Denies loss of vision, Denies numbness and Denies tingling Psychiatric: Psychiatric: Reports no additional psychiatric complaints Endocrine: Endocrine: Reports no additional endocrine complaints Hematologic/Lymphatic: Hematologic/Lymphatic: Reports no additional hematologic/lymphatic complaints Allergic/Immunologic: Allergic/Immunologic: Reports no additional allergic/immunologic complaints PMFSH Past Medical History Attestation statement: The following information was validated with the patient. Source: old records reviewed and nursing notes reviewed Medical History Kidney stone Essential hypertension Social History Social History Patient Tobacco Use Status: Never used Tobacco Physical Exam 2 Vital Signs: Vital Signs: Last Vital Signs Temp 98.1 F 03/31/25 11:37 Pulse 50 03/31/25 11:37 Resp 12 03/31/25 11:37 BP 155/94 H 03/31/25 11:37 Pulse Ox 94 03/31/25 11:37 O2 Del Method Room Air 03/31/25 11:37 BMI result Body Mass Index 40.3 Const: General: cooperative, no acute distress, alert and awake Nutritional Appearance: well nourished Orientation/consciousness: patient oriented x3 HEENT: Head: Yes normal to inspection and Yes atraumatic Ears: hearing grossly normal bilaterally and external ears normal General nose exam: Normal external nose present, no nasal discharge noted and no epistaxis Face and sinus: Yes normal facial exam, No abrasion and No laceration Mouth: Normal oral and palatal mucosa present, no drooling and no muffled voice Eyes: General: appearance normal, both eyes and all related structures P eriorbital: periorbital findings normal Eyelids: Yes eyelids normal C onjunctivae: conjunctivae normal Pupils: Equal, round and reactive pupils present EOM: EOMs intact bilaterally Neck: Neck: Yes normal visual inspection, Yes full ROM and Yes no lymphadenopathy Resp: Effort & Inspection: normal respiratory effort and able to speak in complete sentences Neuro: General: patient oriented x3, moves all extremities and CN's II-XI intact bilaterally Cranial nerves: Yes Equal, round and reactive pupils present Cognition (Neuro): normal cognition Extrem: General: Yes normal to inspection, Yes full ROM and Yes capillary refill normal Psych: Appearance: grossly normal Mental Status: mental status grossly normal Affect: normal affect Attitude: cooperative Thought process: N ormal thought process present Thought content: Normal thought content present Insight: Good insight present (Psych) Medications Administered Discontinued Medications Generic Name Dose Route Start Last Admin Trade Name Freq PRN Reason Stop Dose Admin Sodium Chloride 1,000 mls @ 999 mls/hr 03/31/25 08:15 03/31/25 10:33 Ns IV 03/31/25 09:15 Infused .Q1H1M JAZZMINE Infusion Ketorolac Tromethamine 15 mg 03/31/25 08:11 03/31/25 08:49 Ketorolac Tromethamine 15 Mg/Ml Vial IVPUSH 03/31/25 08:12 15 mg ONCE ONE Administration Medical Decision Making Medical Decision Making [facility] Narrative: Patient is a 64 year old assigned male at with a history of kidney stones, known bladder stone, and HTN presenting to the emergency department today with continued flank and bladder pain with increased urinary urgency and feeling like he cannot urinate well. Patient's physical exam was unremarkable. Patient's blood work was unremarkable. Patient's urine showed moderate blood, large leuks, >20 RBC, >50 WBC which is consistent with his previous urine on 03/22/2025. Patient's culture from 03/22/[address] Patient's CT abd/pelvis showed persistent moderate bilateral hydroureteronephrosis to the level of the bladder without evidence of an obstructing stone and a 10mm bladder calculus with moderate bladder wall thickening. I spoke with Dr. Amaro, the urologist employment instructional associate, who recommended finasteride 5mg daily, tamsulosin, pyridium 100mg BID, and tylenol 500mg Q6H for pain with outpatient follow up. She stated it was not necessary for the patient to be continued on ABX and he should finish his previously prescribed course. I explained my physical exam findings as well as all test results to the patient. I answered all questions asked by the patient. Patient received IV fluids and Toradol which, upon re-evaluation, he stated it helped his symptoms significantly. I stressed the importance of the patient taking his medication as directed (either prescribed or as the over the counter packaging recommends). I stressed the importance of the patient following up with his primary care provider and the urologist team. I stressed the importance of the patient returning to the emergency department immediately if his symptoms were to worsen or if he were to develop any dizziness, shortness of breath, difficulty breathing, chest pain, blurry vision, loss of vision, nausea, vomiting, abdominal pain, fever, chills, back pain, or any other complaints. Patient verbalized agreement and understanding with this treatment plan and discharge. Differential Diagnosis Differential Diagnoses: The differential diagnosis associated with the presentation includes Kidney stone Flank pain Bladder stone Admission/Observation Consideration of admission/observation: Escalation of care including admission/observation considered Patient would have been admitted to the hospital had his work up had any findings where hospital admission was appropriate and his clinical presentation warranted hospital admission. Consult Healthcare Provider Management of the patient was discussed with: Sales Service Supervisor (I spoke with Dr. Amaro as noted in the MDM Rationale portion of this note.) Lab Data [facility] Lab Attestation statement: I reviewed the patient's lab results. My interpretation of these results are in the MDM Rationale portion of this note. 03/31/25 06:47 03/31/25 06:47 Labs: Lab Results 03/31/25 03/31/25 Range/Units 06:47 07:14 WBC 7.7 (4.8-10.8) X10*3/uL RBC 4.79 (4.60-5.80) X10*6/uL Hgb 14.3 (14.0-18.0) g/dl Hct 40.0 L (42.0-52.0) % MCV 83.5 (80.0-98.0) fL MCH 29.9 (27.0-33.0) pg MCHC 35.8 (31.0-36.0) g/dl RDW 12.8 (11.0-16.0) % Plt Count 246 (160-400) X10*3/uL MPV 9.4 (9.4-12.4) fL Immature Gran % (Auto) 0.3 (0.0-0.4) % Neut % (Auto) 72.2 (45-73) % Lymph % (Auto) 17.7 L (20-40) % Harlan % (Auto) 7.6 (2-11) % Eos % (Auto) 1.9 (0-4) % Baso % (Auto) 0.3 (0-2) % Lymph # (Auto) 1.4 (1.2-4.9) X10*3/uL Harlan # (Auto) 0.6 (0.1-1.2) X10*3/uL Eos # (Auto) 0.2 (0.0-0.4) X10*3/uL Baso # (Auto) 0.0 (0.0-0.2) X10*3/uL Abs Immat Gran (auto) 0.02 (0.00-0.03) X10*3/uL Absolute Neuts (auto) 5.6 (2.0-8.3) x10*3/uL Absolute Nucleated RBC 0.000 (0.0-0.012) X10*3/uL Nucleated RBC % (auto) 0.0 (0.0-0.2) /100WBC Sodium 139 (135-145) mmol/L Potassium 3.9 (3.3-5.1) mmol/L Chloride 111 H (96-108) mmol/L Carbon Dioxide 22 (22-29) mmol/L Anion Gap 10 L (12-20) BUN 14 (9-16) mg/dL Creatinine 1.37 (0.5-1.4) mg/dL Estim Creat Clear Calc 69.5 Estimated GFR 52 Random Glucose 131 H (60-115) mg/dL Calcium 9.1 (8.4-10.2) mg/dL Urine Color Yellow Urine Appearance Turbid Urine pH 5.5 (5.0-9.0) Ur Specific Kirby 1.015 (1.005-1.025) Urine Protein 100 (2+) H (Neg-Trace) mg/dL Urine Glucose (UA) Negative (Negative) mg/dL Urine Ketones Negative (Negative) mg/dL Urine Blood Moderate (2+) H (Negative) Urine Nitrite Negative (Negative) Ur Leukocyte Esterase Large (3+) H (Negative) Urine RBC >20 H (0-2) /HPF Urine WBC >50 H (0-5) /HPF Ur Squamous Epith Cells 0-2 (0-2) /HPF Urine Bacteria None Seen (None Seen) Hyaline Casts 0-2 (0-2) /LPF Independent Interpretation I performed an independent interpretation of an: CT Scan Interpretation: My interpretation is in agreement with the radiologist's impression of this imaging study. L Report Number: [id number]: Total DLP = 791.00 mGy-cm EXAMINATION: CT ABDOMEN PELVIS WITHOUT IV CONTRAST HISTORY: flank pain COMPARISON: Comparison is made with the prior examination dated 03/22/2025. TECHNIQUE: CT scan of the abdomen and pelvis was performed without contrast using standard departmental protocol. Coronal and sagittal reformatted images were generated and reviewed. Oral contrast material was not administered per department protocol. This CT exam was performed with one or more of the following dose reduction techniques: automated exposure control, adjustment of the mA and/or kV according to patient size, use of iterative reconstruction technique. DLP: 791 mGy-cm FINDINGS: LOWER CHEST: The visualized lung bases are clear. There is no pleural effusion. CARDIOVASCULATURE: The heart is normal in size. There is no pericardial effusion. LIVER: The liver is normal in size and contour, but demonstrates diffusely decreased attenuation, consistent with steatosis. The liver has an unremarkable unenhanced appearance. GALLBLADDER / BILE DUCTS: The gallbladder is unremarkable. There is no intra or extrahepatic biliary ductal dilatation. SPLEEN: The spleen is normal in size and has an unremarkable unenhanced appearance. PANCREAS: The pancreas has an unremarkable unenhanced appearance. ADRENAL GLANDS: Unremarkable. KIDNEYS/RETROPERITONEUM: Again seen is a rim calcified structure at the upper pole of the right kidney measuring 4.7 cm. There is a 2.7 cm cyst at the lower pole. No renal calculi are identified. There is moderate bilateral hydroureteronephrosis to the level of the bladder without significant change. No ureteral calculi are identified. LYMPH NODES: No retroperitoneal lymphadenopathy is identified in the abdomen or pelvis. VASCULATURE: The abdominal aorta is normal in caliber. MESENTERY/PERITONEUM: No free fluid. No masses. There is no free intraperitoneal gas. STOMACH: The stomach is collapsed, limiting evaluation. SMALL BOWEL: The small bowel is normal in caliber. COLON: There is diverticulosis of the descending and sigmoid colon, without evidence of diverticulitis. APPENDIX: Normal. URINARY BLADDER/PELVIC ORGANS: Again seen is a 10 mm calculus in the dependent portion of the urinary bladder. Again seen is moderate bladder wall thickening which could be secondary to cystitis or chronic outflow obstruction. The prostate is normal in size. BONES / SOFT TISSUES: There is bilateral spondylolysis of L5 with grade I-II spondylolisthesis of L5 on S1. CT/CT abdomen pelvis wo IV con IMPRESSION: 1. Persistent moderate bilateral hydroureteronephrosis to the level of the bladder without evidence of an obstructing ureteral calculus. 2. 10 mm bladder calculus. Moderate bladder wall thickening which may be on the basis of chronic outflow obstruction or cystitis. Clinical and urologic consultation is suggested. Electronically signed by: Darshan Yeh MD 03/31/2025 09:38 AM EDT Dictated By: Darshan Yeh MD Signed By: Electronically signed by Darshan Yeh MD 03/31/25 0938 Radiology Impression Discussion of test interpretation with radiology: I have reviewed the radiologist's reading. Prescription Management I considered prescription management with: Pain Medication (patient prescribed pain medication) Patient prescribed medications per urology recommendations as noted in the MDM Rationale portion of this note. Critical Care Time Critical Care Time Critical Care Time: Yes Total Critical Care Time: 34 Attestation: I spent 34 minutes of Critical Care Time with this patient. This does not include time spent on separately reported billable procedures. Discharge Plan Discharge Clinical Impression: Bladder stone Patient Disposition: Home, Self-Care Instructions: Bladder Stones (ED) Additional Instructions: Take the medications I have prescribed you as directed - this is directly from the Urologist. IF you are prescribed medications and/or you are taking over the counter medications - it is very important you continue to do so as prescribed / directed unless told otherwise. Follow up with your primary care provider and the urology team as scheduled. Return to the emergency department immediately if your symptoms worsen or if you develop any numbness, tingling, dizziness, shortness of breath, difficulty breathing, chest pain, blurry vision, loss of vision, nausea, vomiting, abdominal pain, fever, chills, back pain, or any other complaints. Please see the information below about our Patient Portal. If you are not yet enrolled in the [facility] Patient Portal, you will receive an enrollment email invitation following your visit to any [facility] setting. You may also self-enroll in the Patient Portal by visiting our website: [email or web address] The following information is required to access the Patient Portal: - Your [facility] Medical Record Number - Your personal home email address (must match what is in your electronic medical record, Registration staff can assist with this) - Name - Date of Capabilities of the Patient Portal: - Message some providers - View upcoming appointments - Access your health summary, medical history, and visit history - View current conditions and allergies - View procedure and lab results - View your medications, including guidelines, side effects, and precautions - Complete pre-appointment questionnaires requested by your provider - Ready summary reports of your office visits and procedures To access the Patient Portal Mobile [employer], follow these directions: - Search [employer] in the [employer] Store or [employer] [address] Store - Download the Andrew - Search for [facility] - Enter your login/password Prescriptions: New finasteride [Proscar] 5 mg tablet 5 mg PO DAILY Qty: 14 0RF tamsulosin 0.4 mg capsule 0.4 mg PO DAILY Qty: 7 0RF phenazopyridine [Pyridium] 100 mg tablet 100 mg PO BID Qty: 14 0RF acetaminophen [Tylenol Extra Strength] 500 mg tablet 500 mg PO Q6H Qty: 20 0RF No Action cefuroxime axetil 500 mg tablet 500 mg PO Q12H 10 Days Qty: 20 0RF telmisartan 80 mg tablet 80 mg PO DAILY Referrals: [facility] [Provider Group, Urology] Referral Note: Follow up with the urology office as scheduled. Petra Hernandez MD [Primary Care Provider, Internal Medicine] Interventions: ED Discharge Assessment Last Done: 03/31/25 11:37 Discharge Date/Time: 03/31/25 11:38 Print Language: Arabic
--- NOTE | 2025-03-31 09:28 | PC.NURSE ---
Patient returned from CT awaiting results. 20G IV in left AC currently running NS 1 L. Patient reports somewhat effectiveness of toradol pain rated 7/10
[2025-03-31 10:34] VITALS: BP 155/94; PULSE 50; RESP 12; RESP 14; TEMP 36.3; TEMP 36.7; O2SAT 94; O2SAT 96
[2025-03-31 11:37] VITALS: BP 155/94; PULSE 50; RESP 12; TEMP 36.7; O2SAT 94
== END 2025-03-31 11:38 | disposition home or self-care (01) ==
PROVIDERS: Emergency Provider Emergency Medicine; PCP Internal Medicine
DX: N21.0 Calculus in bladder (principal); Z87.442 Personal history of urinary calculi
CPT/HCPCS: 36415; 74176; 80048; 81001; 85025; 87086; 96361; 96374; 99284; 99285; J1885

== ENCOUNTER → 2025-03-31 08:11 | Outpatient (BNV) | payer OTHER, SELFPAY | PROVIDERS: PCP Internal Medicine; Visit Provider Radiology Diagnostic Radiology | DX: N13.30 Unspecified hydronephrosis (principal); N21.0 Calculus in bladder | CPT/HCPCS: 74176 ==

== ENCOUNTER 2025-04-06 08:24 | Outpatient (AMB) | payer OTHER, SELFPAY ==
--- NOTE | 2025-04-06 08:25 | A.OFFVIS_ITS ---
Intake Visit Reasons: STONES Intake Note: Patient presents today for follow up for kidney stones Urology Medications: Tamsulosin Blood Thinner:none Imaging done : ABD CT 03/31/2025 Entry Level Sales Associate Required: No Accompanied by: Self / Same As Patient Allergies No Known Allergies (No Known Allergies*) Allergy (Verified 04/06/25 08:26) HPI Comments Details: Odin is a pleasant male. He is a patient of Dr. Hernandez. He seen for the following urologic conditions - bladder stone Seen in emergency room during February Pain with strangury UTI Imaging - CT scan10 mm calculus in the dependent portion of the urinary bladder. Again seen is moderate bladder wall thickening which could be secondary to cystitis or chronic outflow obstruction Recommend cystoscopy, laser stone laser, bilateral retrograde PFSH Medical History Kidney stone Essential hypertension Social History Patient Tobacco Use Status: Never used Tobacco Review of Systems Const Denies chills and Denies fever(s) Card Reports no additional complaints and Denies syncope Resp Denies cough GI Denies abdominal pain and Denies heartburn Reports as per HPI and Denies change in libido Neuro Denies syncope Psych Denies change in libido Endo Denies change in libido Physical Exam Const General: cooperative, healthy appearing, comfortable and no acute distress Orientation/consciousness: patient oriented x3 HEENT Face and sinus: Yes normal facial exam Mouth: moist mucous membranes Neck Neck: Yes normal visual inspection, Yes full ROM and Yes trachea midline Chest Chest palpation & inspection: normal inspection of the chest Resp Effort & Inspection: normal respiratory effort, able to speak in complete sentences and no respiratory distress GI Inspection: Yes normal to inspection Back/Spine/Pelvis Cervical Spine: normal cervical lordosis Thoracic/Lumbar Spine: thoracic and lumbar spine normal to inspection Skin General skin exam: no rashes or lesions noted Neuro General: patient oriented x3, gait normal, tone normal and moves all extremities Extrem General: Yes normal to inspection and Yes capillary refill normal Assessment & Plan Assessment & Plan (1) Bladder stone: Code(s): N21.0 - Calculus in bladder Category: Medical (2) Hydronephrosis: Code(s): N13.30 - Unspecified hydronephrosis Category: Medical Plan Risks, benefits and alternatives to therapy were discussed. These include but are not limited to infection, bleeding, damage to local organs and tissues, need for further interventions. Anesthetic risks regarding cardiac arrhythmia, blood clots, and potential mortality were discussed. The patient understands the typical recovery time and the outpatient nature of the procedure. After consideration of these risks the patient gives full informed consent and they wish to move ahead with the procedure. - laser of bladder stone with bilateral retrogrades Patient Instructions: This note is constructed using voice recognition software. While every effort has been made to ensure accuracy electrical engineering manager errors may have been included. Imaging studies, laboratory and physical exam results were discussed and reviewed in detail. No major barriers to patient understanding were identified. An opportunity to ask questions regarding the treatment plan was provided. All questions were answered. The patient expressed understanding and agreement with the above treatment plan. The patient is aware they should contact our office by phone for worsening of their current condition or the appearance of new urologic symptoms. Compliance is encouraged with any medications and followup testing that is ordered. It is a privilege to participate in the urologic care of your patient. If you have any questions or concerns regarding treatment for the above conditions, or other urologic issues, please do not hesitate to contact me. The office telephone contact is [phone]. Sincerely, Dr Mik Almonte MD, [facility] - Urology Compassionate Specialist Care for the Genitourinary System Coding Level of Care Code Est Pt Level 4 (32534) Diagnoses Bladder stone N21.0 Hydronephrosis N13.30
--- OUTSIDE RECORDS SUMMARY | 2025-04-06 08:34 | XMS_ITS | Patient Health Record ---
Author Organization [facility] Address [address] [place] [address] Care Team Providers Care Victims Advocate Clerk/Specialist Name Role Phone NONE, NONE Primary Care Provider Darshan Carvajal Unavailable [phone] Reason For Referral No Information Medications Medication [...] W/U Status Risk Notes Problem Pre-surgery evaluation (615214419) Other specified pre-operative examination (V72.83) Active confirmed Problem Colon cancer screening (V76.51) Active confirmed Plan Of Treatment Future Test Test Name Order Date COLONOSCOPY 02/15/2014 Insurance Providers Payer Name Payer Address Payer Phone Subscriber Number Group Number Insured Name Patient Relationship to Insured Coverage Start Date Coverage End Date [facility] [address] [place] [phone] [id number] [employer] Self - patient is the insured Medical (General) History Medical History History ICD Code Denies IN,DM,CVA,Lung disease,renal dise ase Neg. UGI in 2012
== END 2025-04-06 09:30 | disposition home or self-care (01) ==
LOC: HO.HUSH 08:24
PROVIDERS: PCP Internal Medicine; Visit Provider Urology
DX: N21.0 Calculus in bladder (principal); N13.30 Unspecified hydronephrosis
CPT/HCPCS: 99214

== ENCOUNTER 2025-05-09 09:08 | Day surgery (SDC) | payer OTHER, SELFPAY ==
--- OUTSIDE RECORDS SUMMARY | 2025-04-12 16:45 | XMS_ITS | Patient Health Record ---
Author Organization [facility] Address [address] [place] [address] Care Team Providers Care Butt Presser Name Role Phone NONE, NONE Primary Care Provider Darshan Carvajal Unavailable [phone] Reason For Referral No Information Medications Medication [...] W/U Status Risk Notes Problem Pre-surgery evaluation ([id number]) Other specified pre-operative examination (V72.83) Active confirmed Problem Colon cancer screening (V76.51) Active confirmed Plan Of Treatment Future Test Test Name Order Date COLONOSCOPY 02/15/2014 Insurance Providers Payer Name Payer Address Payer Phone Subscriber Number Group Number Insured Name Patient Relationship to Insured Coverage Start Date Coverage End Date [facility] [address] [place] [phone] [id number] [employer] Self - patient is the insured Medical (General) History Medical History History ICD Code Denies MS,DM,CVA,Lung disease,renal dise ase Neg. UGI in 2012
--- NOTE | 2025-05-06 12:20 | P.CONAN_ITS ---
Documented by User: Hina Callahan NP 05/06/25 12:20 HPI - Anesthesia Eval Consult details Narrative: 64yo M for Cystoscopy Bladder Stone Removal,with BILATERAL retrograde PMFSH Active Problems Active Problems: All Active Problems (Updated 03/31/25 @ 11:12 by SIMEON Luz) Bladder stone (Acute) Hydronephrosis (Acute) Kidney stone (Acute) UPJ (ureteropelvic junction) obstruction (Acute) Essential hypertension (Acute) Urinary tract infection (Acute) Past Medical History Medical History Kidney stones Kidney stone Essential hypertension Surgical History Surgical History (Reviewed 05/09/25 @ 11: by Leanne Campa MD) H/O colonoscopy H/O shoulder surgery Social History Social History Patient Tobacco Use Status: Never used Tobacco Use of substances other than those prescribed or required for medical reasons: No Are you DNR?: No Advance Directives: No Advance Directives Information Provided: Yes Poor oral hygiene: No Meds Allergies Allergy/AdvReac Type Severity Reaction Status Date / Time No Known Allergies (No Known Allergy Verified 04/06/25 08:26 Allergies*) Home Medications ?Medication ?Instructions ?Recorded ?Confirmed ?Last Taken ?Type telmisartan 80 mg tablet 80 mg PO DAILY 12/03/23 Jigna yoon History Assessment and Plan Assessment Anesthesia Assessment: Chart Reviewed Documented by User: Leanne Campa MD 05/09/25 11:26 PMFSH Past Medical History Medical History Kidney stones Kidney stone Essential hypertension Surgical History Surgical History H/O colonoscopy H/O shoulder surgery History of Problems with Anesthesia: No Social History Social History Patient Tobacco Use Status: Never used Tobacco Use of substances other than those prescribed or required for medical reasons: No Are you DNR?: No Advance Directives: No Advance Directives Information Provided: Yes Poor oral hygiene: No Meds Allergies Allergy/AdvReac Type Severity Reaction Status Date / Time No Known Allergies (No Known Allergy Verified 04/06/25 08:26 Allergies*) Home Medications ?Medication ?Instructions ?Recorded ?Confirmed ?Last Taken ?Type telmisartan 80 mg tablet 80 mg PO DAILY 12/03/23 Unk nown History Exam Airway Mallampati Class: III TM Dist: >3cm Neck ROM: Full Loose/Missing/Broken Teeth: No Heart: RRR Lungs: CTA Assessment and Plan Assessment Anesthesia Assessment: Anesthesia Plan Discussed Final Anesthetic Review History of Problems with Anesthesia: No NPO: Yes ASA Class: II Final Preanesthetic Review: Meds/Allgs Chart Reviewed, Consent Obtained/Reviewed and Anes Risks/Benef Reviewed Patient Risk: Low Procedure Risk: Low Anesthetic Plan Anesthetic Plan: GA Disposition: Standard PACU
--- NOTE | ~2025-05-09 | FL_ITS ---
EXAMINATION: FL GUIDANCE ONLY HISTORY: bilateral ureteral retrogrades COMPARISON: Correlation is made with an unenhanced CT of the abdomen and pelvis dated 03/31/2025. TECHNIQUE: Fluoroscopy time: 15.5 seconds. Cumulative Dose: 7.8285 mGy. DAP: 3.4053 mGym2 Images: 3. FINDINGS: Fluoroscopic spot films from a bilateral retrograde ureterogram demonstrate mildly dilated distal ureters. Evaluation is limited by underdistention. FL/FL guidance in OR IMPRESSION: Fluoroscopy during procedure. Please see procedure report for additional information. Electronically signed by: Darshan Yeh MD 05/09/2025 12:38 PM EDT
[2025-05-09 10:20] VITALS: BMI 37.8
[2025-05-09 10:26] VITALS: BP 151/91; PULSE 50; RESP 16; TEMP 36.6; O2SAT 94
[2025-05-09] MEDS: Lactated Ringers 1,000 ML 100 ML IVCONT (10:34)
--- NOTE | 2025-05-09 11:15 | MHC.SHP ---
Pre-Procedural Eval Section A - 24 Hr Update-Section A only Date of Service: 05/09/25 The patient is an INPATIENT: No Changes since office visit: No Cold of Flu in the past 2 weeks, No New Medical Problems, No Changes in Medication and No Patient answered all questions The patient has been examined within 24 hours of the surgical procedure. The History & Physical has been completed within 30 days and I have reviewed it.: Yes Section B - Complete if H&P > 30 days Chief Complaint: Calculus in bladder Details of Present Illness: Cystoscopy, bladder stone removal, bilateral retrogrades Allergies: Allergies Allergy/AdvReac Type Severity Reaction Status Date / Time No Known Allergies (No Known Allergy Verified 04/06/25 08:26 Allergies*) Plan I have reviewed the history and physical and performed a pertinent physical examination on my patient. No changes have occurred unless specified. Time Spent With Patient Time: Total time managing care of this patient today ____ minutes.
[2025-05-09 12:18] VITALS: BP 176/97; PULSE 55; RESP 18; TEMP 36.1; O2SAT 99
[2025-05-09 12:23] VITALS: BP 165/95; PULSE 53; RESP 13; O2SAT 93
[2025-05-09 12:28] VITALS: BP 157/93; PULSE 54; RESP 16; O2SAT 93
[2025-05-09 12:33] VITALS: BP 150/88; PULSE 55; RESP 16; TEMP 36.1; O2SAT 97
--- NOTE | 2025-05-11 17:25 | P.OP_ITS ---
Operative Note Operative Note Date of Service: 05/09/25 Narrative: PreOperative Diagnosis: Bladder Stone, bilateral hydronephrosis Post Operative Diagnosis: Bladder Stone, bilateral hydro nephrosis Procedure: 1) Cystoscopy 2) Bladder Stone Laser 3) bilateral retrogrades Surgeon: Dr Mik Almonte Anesthesia: LMA Indications for procedure: Recurrent UTI with hematuria. Imaging shows 1.5 cm bladder stone with bilateral retrograde Procedure: After informed consent was verified the patient was brought to the operating room and placed in a supine position. Anesthesia was administered per protocol. The patient was placed in modified dorsal lithotomy position and prepped and draped in a sterile fashion. Safety pause time-out was performed. Antibiotics being given. Cystoscopy was performed. Meatus dilated. No abnormality noted of anterior- posterior urethra. Bladder emptied. Bladder entered. 1.5 cm stone seen. Attempt was made to use stone timber management professor to break stone. Stone was very hard and decision was made to pursue laser breakage Using a 550nm holmium laser with bladder stones settings the stone was slowly broken into small pieces. The small pieces were irrigated from the bladder. Bilateral retrogrades performed. Significant J hooking was seen which appears to have been the cause of the hydro nephrosis. The patient tolerated the procedure well. They were extubated in operating room and transferred in stable conditions recovery area. He may benefit from a prostate procedure in the future Pathology: Bladder Stones Drains: none
== END 2025-05-09 13:10 | disposition home or self-care (01) ==
PROVIDERS: PCP Internal Medicine; Visit Provider Urology
PROC: 0TCB8ZZ Extirpation of Matter from Bladder, Via Natural or Artificial Opening Endoscopic (ICD-10-PCS; CPT 52352; principal; 2025-05-09 11:00)
DX: N21.0 Calculus in bladder (principal); N13.30 Unspecified hydronephrosis; Z87.442 Personal history of urinary calculi; I10 Essential (primary) hypertension; Z79.899 Other long term (current) drug therapy
CPT/HCPCS: 52317; 52005; 88300; J1100; J1956; J2003; J2405; J2704; J3010; Q9967

== ENCOUNTER → 2025-05-09 09:08 | Outpatient (BNV) | payer OTHER, SELFPAY | PROVIDERS: PCP Internal Medicine; Visit Provider Urology | DX: N21.0 Calculus in bladder (principal); N13.30 Unspecified hydronephrosis | CPT/HCPCS: 52317; 74420 ==